=== PATIENT | male | born 1955 | race Caucasian/White ===

== ENCOUNTER 2025-01-27 08:42 | Inpatient (IN) | payer MEDICARE, SELFPAY ==
--- NOTE | ~2025-01-27 | CT_ITS ---
EXAMINATION: CT CERVICAL SPINE WITHOUT CONTRAST CLINICAL INFORMATION: Seizure COMPARISON: None available. TECHNIQUE: US axial images through the cervical spine using 3 mm collimation with bone and soft tissue algorithm. Sagittal and coronal reformatted images acquired. DLP: 356.[address] examination was performed using dose optimization techniques as appropriate, variously including the following: *Automated exposure control *Adjustment of mA and/or kV according to patient size (this includes techniques or standardized protocols for targeted exams where dose is matched to indication/reason for exam; i.e. extremities or head) *Use of iterative reconstruction technique FINDINGS: Degenerative changes in the craniocervical junction periodontal region with a partially calcified pannus formation. Normal alignment between the occipital condyles and the lateral masses of C1 without acute cortical disruption. Marginal osteophyte formation and subchondral cyst formation and decreased intervertebral disc height and endplate sclerosis from C3-4 to C6-7 pronounced at C4-5 C5-6 and C6-7. Grade 1 retrolisthesis C4-5 on a degenerative basis. C1 is intact. C2 is intact. C3 is intact. Facet joint hypertrophy. C4 is intact. C5 is intact. Facet joint hypertrophy. C6 is intact. C7 is intact. No prevertebral compartment hematoma, mass or fluid collection. Paraseptal emphysematous changes, lung apices. Tympanic cavities and mastoid cells are aerated. CT/CT cervical spine wo IV con IMPRESSION: Multilevel cervical spondylosis without acute fracture or trauma-related listhesis. Fleischner guidelines were followed. Electronically signed by: Twin Saavedra MD 01/27/2025 11:03 AM EDT
--- NOTE | ~2025-01-27 | XR_ITS ---
EXAMINATION: XR CHEST CLINICAL INFORMATION: confused, recent weight loss COMPARISON: None available. TECHNIQUE: 2 views of the chest were obtained. FINDINGS: No significant abnormality is noted involving the heart, lungs, mediastinum, or soft tissues. Anterior osteophytes are present in the midthoracic spine. There is also mild disc space narrowing. XR/XR chest 2V IMPRESSION: No acute disease. Mild degenerative disc disease in the midthoracic spine. Electronically signed by: Kris Ordonez MD 01/27/2025 10:35 AM EDT
--- NOTE | ~2025-01-27 | CT_ITS ---
EXAMINATION: CT HEAD WITHOUT CONTRAST CLINICAL INFORMATION: seizure, confusion COMPARISON: None available. TECHNIQUE: Contiguous axial imaging was performed from the skull base to vertex without intravenous administration of contrast. This CT examination was performed using dose optimization techniques as appropriate, variously including the following: *Automated exposure control *Adjustment of mA and/or kV according to patient size (this includes techniques or standardized protocols for targeted exams where dose is matched to indication/reason for exam; i.e. extremities or head) *Use of iterative reconstruction technique DLP: 680 mGy-cm FINDINGS: No acute cortical disruption in the bony calvarium or the skull base. No acute intracranial hemorrhage, mass effect, midline shift, hydrocephalus or herniation. Alfonso-white matter differentiation is normal. Mild bilateral patchy deep periventricular white matter hypodensity. Questionable old lacunar infarct in the right mid grant. Prominence of the extra-axial CSF spaces cerebral sulci and ventricles likely central volume loss. Posterior cranial fossa contents demonstrated no acute intracranial hemorrhage or mass effect. Sellar/suprasellar region demonstrated no gross masses. There is normal position of the cerebellar tonsils. Tympanic cavities and mastoid cells are aerated. No air-fluid levels in the paranasal sinuses. Old traumatic deformity, nasal bones. No gross hematoma in the intraconal or extraconal compartments of the orbits. 1.4 cm crescent-shaped fat density right frontal soft tissue scalp, likely lipoma.. CT/CT head/brain wo IV con IMPRESSION: No acute fracture, bony calvarium. No acute intracranial hemorrhage. Electronically signed by: Twin Saavedra MD 01/27/2025 11:06 AM EDT
--- NOTE | ~2025-01-27 | US_ITS ---
EXAMINATION: US KIDNEY BILATERAL HISTORY: JOSEPH TECHNIQUE: Real-time grayscale ultrasound imaging of the kidneys was performed and images were reviewed. COMPARISON: There are no prior studies available for comparison. FINDINGS: Right kidney: The right kidney measures 9.8 x 5.4 x 4.8 cm. There is suboptimal visualization of the upper and lower poles. There is increased renal cortical echotexture, consistent with chronic medical renal disease. There are multiple cysts, the largest of which measures 1.7 x 0.8 x 1.1 cm. There is no hydronephrosis or renal calculi. Left Kidney: The left kidney measures 8.9 x 4.9 x 3.1 cm. There is suboptimal visualization of the lower pole. There is increased renal cortical echotexture, consistent with chronic medical renal disease. There are multiple renal cysts, the largest of which measures 7 x 6 x 8 mm. There is no hydronephrosis or renal calculi. US/US renal BI IMPRESSION: Increased renal cortical echotexture, consistent with chronic medical renal disease. Multiple bilateral renal cysts as described. Electronically signed by: Brando Tejada MD 02/12/2025 07:03 AM EDT
[2025-01-27 08:57] VITALS: BP 136/94; PULSE 97; RESP 16; TEMP 36.6; O2SAT 99; BMI 22.9
--- NOTE | 2025-01-27 09:04 | ECG_ITS ---
Test Reason : MED CLEARANCE Blood Pressure : */* mmHG Vent. Rate : 89 BPM Atrial Rate : 89 BPM P-R Int : 140 ms QRS Dur : 94 ms QT Int : 368 ms P-R-T Axes : 42 -64 49 degrees QTcB Int : 447 ms Normal sinus rhythm Incomplete right bundle branch block Left anterior fascicular block Cannot rule out Anterior infarct , age undetermined Abnormal ECG No previous ECGs available Referred By: Generic ED Physician Electronically Signed By: Sammy Rashid
[2025-01-27 09:21] LABS: MANUAL DIFF FLAG NO
[2025-01-27 09:33] LABS: Hematocrit 43.8 % (42.0-52.0); Hemoglobin 14.5 g/dl (14.0-18.0); Imm Gran Abs Auto 0.07 X10*3/uL (0.00-0.03); Imm Gran Pct Auto 1.1 % (0.0-0.4); Lymphocytes Absolute Auto 1.5 X10*3/uL (1.2-4.9); Mean Corpuscular HGB Conc 33.1 g/dl (31.0-36.0); Mean Corpuscular Hemoglobin 31.7 pg (27.0-33.0); Mean Corpuscular Volume 95.6 fL (80.0-98.0); NRBC Abs Auto 0.000 X10*3/uL (0.0-0.012); NRBC Pct Auto 0.0 /100WBC (0.0-0.2); Platelet Count 139 X10*3/uL (160-400); Red Blood Count 4.58 X10*6/uL (4.60-5.80); White Blood Count 6.6 X10*3/uL (4.8-10.8)
--- NOTE | 2025-01-27 09:36 | ED_ITS ---
HPI - General Adult General Chief complaint: General Medical Stated complaint: crisis eval Time Seen by Provider: 01/27/25 09:07 Source: patient and family (son) Mode of arrival: ambulatory Limitations: no limitations History of Present Illness ED Provider: CORINE LEE PA-C HPI narrative: 69 year old male with pmhx significant for HTN, seizures, and stage 4 CKD (not on dialysis) presents to the ED today with his son for evaluation. He reports seizure 1-2 days ago while home alone. Patient states he recalls the entire episode. Reports falling to the ground and began convulsing. This lasted anywhere from 1-5 minutes. Denies any preceding symptoms of headache, dizziness, chest pain, palpitations, shortness of breath. He was eventually able to get off of the ground himself and ambulate. He denies any head strike. Denies tongue bite. Denies bowel or bladder incontinence. He is not on anticoagulation. He reports feeling confused since this time. He admits he does not typically remember his seizures. He is currently on Depakote and reports compliance however admits to missing a few doses here and there. He reports taking his Depakote this morning. Reports increasing depression. He currently follows with a therapist approximately 2 times a year. Reports recently meeting with them however did not inform them of how he was feeling. Reports contacting his son today who brought him to the ED for further evaluation. Admits to smoking approximately 1 pack of cigarettes a day. Admits to drinking approximately 1 glass of wine and 1 large 20 oz beer daily over the last month. Denies any history of ETOH withdrawal or known withdrawal seizures. He last consumed alcohol last night. Denies any illicit substance use. Denies SI/HI. Admits to unintentional 20 lb weight loss over the last 4-6 weeks. Reports episode of vomiting a few day ago which has since resolved. Admits to increased water intake and decreased food intake. Related Data Home Medications ?Medication ?Instructions ?Recorded ?Confirmed cholecalciferol (vitamin D3) 25 25 mcg PO DAILY 01/28/25 mcg (1,000 unit) tablet (Vitamin D3) divalproex 500 mg tablet,delayed 1,000 mg PO BEDTIME 0 01/28/25 01/28/25 release divalproex 500 mg tablet,delayed 500 mg PO DAILY 01/2801/28/25 release vitamin B complex 1 tab PO DAILY 01/28/2501/07 Allergies Allergy/AdvReac Type Severity Reaction Status Date / Time No Known Allergies Allergy Mild NONE Verified 01/27/25 09:01 Review of Systems 2 Review of Systems: Yes all other systems are reviewed and are negative [facility] Past Medical History Attestation statement: The following information was validated with the patient. Source: old records reviewed, obtained from family (son) and nursing notes reviewed Medical History (Updated 01/30/25 @ 18:06 by Ludivina Longoria APRN) Alcohol use disorder Social History Social History Household Members: None Household Members Other:: lives alone Housing: Other Housing Other:: Trailer Do you presently have visiting nurse or other home services: No Comment: Patient has had a seizure Patient Tobacco Use Status: Current everyday Tobacco user Tobacco use type: Cigarette Cigarette Packs Per Day: 1 Cigarettes Per Day: 20.0 Years Smoked: 50 Smoked in Last 30 Days: Yes e-Cigarette/Vaping Use: Never Used Patient Interested in Nicotine Replacement: Yes Patient Given Instructions on How to Stop Smoking: No Second Hand Smoke Exposure: No Use of substances other than those prescribed or required for medical reasons: Yes Substance Use Type: Marijuana Currently Displaying Signs/Symptoms of Drug Intoxication Withdrawal: No Have you been hit, kicked, punched, or otherwise hurt by someone within the past year? If so, by whom?: No Do you feel safe in your current relationship?: No Current Relationship Is there a partner from a previous relationship who is making you feel unsafe now?: No Are you made to feel afraid or neglected: No Advance Directives: No Advance Directives Information Provided: Yes Do you have thoughts of harming others: None Do you have a plan to hurt others: No Plan Recently lost weight without trying: Yes How much weight loss: 14-23 pounds Eating poorly because of decreased appetite: Yes Nutrition screen score: 5 Nutrition Risks: Poor intake 0-25% >4 days Poor oral hygiene: Yes (Dentures) service: No Sexual orientation: Straight/Heterosexual Physical Exam ED Vital Signs: Vital Signs - 24 hr 01/28/25 18:19 01/29/25 06:29 Temperature 97.5 F 98.4 F Pulse Rate 64 79 Respiratory Rate 16 17 Blood Pressure 135/85 123/81 Pulse Oximetry 99 98 Oxygen Delivery Method Room Air Room Air BMI result Body Mass Index 22.9 Hypertensive, vitals otherwise WNL General: Well appearing, in no acute distress. Skin: Warm, dry, intact. No rashes or lesions. Head: Normocephalic, atraumatic. EENT: Hearing is intact b/l. Conjunctiva clear. Sclera is anicteric. PERRLA. EOM intact. Moist mucous membranes.? Neck: Supple without LAD Cardiac: Chest wall symmetric. RRR Lungs: Normal respiratory effort without accessory muscle use. Diminished breath sounds throughout, no adventitious breath sounds. Abdomen: Soft, non-tender, non-distended. No rebound tenderness or guarding. Positive BS x4. Back: No midline spinous or paraspinal tenderness. No step off deformity. Ext: Upper and lower extremities atraumatic, without tenderness, deformity, swelling or erythema. Full ROM throughout. Neuro: AOx3. Normal speech. Strength 5/5 intact throughout. No saddle anesthesia. Sensation intact to light touch. NV intact distally. Ambulating with steady gait. Psych: Appropriate mood and affect. Responds appropriately to questions. Course Course Course Narrative: 1216 -- CBC without leukocytosis or left shift. No anemia. H&H stable. Chemistry without acute electrolyte abnormality requiring intervention. Kidney function appears mildly elevated when compared to baseline CKD, BUN of 39 and creatinine of 2.59. Treated with IV fluids. Liver function WNL. TSH WNL. Troponin WNL. Total CK WNL. No concern for rhabdo. EKG showing normal sinus rhythm, rate of 89 beats per minute with incomplete right bundle-branch block and left anterior fascicular block. No acute ischemic changes. No priors EKGs to compare to. Urine without infection. Urine toxicology undetectable. Ethanol undetectable. Valproic acid mildly above therapeutic range to 105.8. Chest x-ray without evidence of pneumonia. Head CT without bleed or mass. CT cervical spine without fracture or subluxation. CIWA 1 - at this time, there is no concern for ETOH withdrawal. I do have suspicion that patient likely seized 2 days ago secondary to consuming alcohol. Unclear compliance with medication although valproic acid levels are technically within therapeutic range. > at this time patient is medically cleared. Care team has met with patient, he states that he would like inpatient level of care which I feel is reasonable. He is currently a bed search. Reevaluation(s) Reevaluation #1: Time: 08:51 Date: 01/28/25 Provider: Feliz Almaguer MD Patient in physician observation for psychiatric evaluation.? No acute events reported overnight. No current complaints. VS stable.? Patient is in bed search status/pending CARE team evaluation. Will continue to monitor. Reevaluation #2: I, Dr. Yanes have take over the care of this patient, I reviewed pertinent blood work and imaging, re-evaluated the patient when appropriate. Time: 08:13 Medications Administered Generic Name Dose Route Start Last Admin Trade Name Freq PRN Reason Stop Dose Admin Divalproex Sodium 500 mg 01/29/25 09:00 01/31/25 09:07 Divalproex Sodium 500 Mg Tablet. PO 500 mg DAILY JOAO Administration Divalproex Sodium 1,000 mg 01/28/25 21:00 01/30/25 21:32 Divalproex Sodium 500 Mg Tablet. PO 1,000 mg BEDTIME JOAO Administration Folic Acid 1 mg 01/31/25 09:00 01/31/25 09:06 Folic Acid 1 Mg Tablet PO 1 mg DAILY JOAO Administration Hydroxyzine HCl 25 mg 01/29/25 16:34 01/30/25 06:32 Hydroxyzine Hcl 25 Mg Tablet PO 25 mg Q6H PRN Administration mild anxiety Lorazepam 1 mg 01/30/25 11:28 01/30/25 11:48 Lorazepam 1 Mg Tablet PO 1 mg Q2H PRN Administration ciwa 6-10 Mirtazapine 7.5 mg 01/30/25 21:00 01/30/25 21:32 Mirtazapine 7.5 Mg Tablet PO 7.5 mg BEDTIME JOAO Administration Multivitamins/Vitamin C 1 tab 01/29/25 09:00 01/31/25 09:06 Multivitamin Tablet PO 1 tab DAILY JOAO Administration Thiamine HCl 100 mg 01/31/25 09:00 01/31/25 09:06 Thiamine Hcl 100 Mg Tablet PO 100 mg DAILY JOAO Administration Vitamin D 25 mcg 01/29/25 09:00 01/31/25 09:06 Cholecalciferol (Vitamin D3) 25 Mcg Tablet PO 25 mcg DAILY JOAO Administration Discontinued Medications Generic Name Dose Route Start Last Admin Trade Name Elliot PRN Reason Stop Dose Admin Diphenhydramine HCl 50 mg 01/28/25 23:12 01/28/25 23:23 Diphenhydramine Hcl 25 Mg Capsule PO 01/28/25 23:13 50 mg ONCE ONE Administration Divalproex Sodium 1,000 mg 01/28/25 01:32 01/28/25 01:36 Divalproex Sodium 500 Mg Tablet. PO 01/28/25 01:33 1,000 mg ONCE ONE Administration Divalproex Sodium 500 mg 01/28/25 08:36 01/28/25 08:39 Divalproex Sodium 500 Mg Tablet. PO 01/28/25 08:37 500 mg ONCE ONE Administration Sodium Chloride 1,000 mls @ 999 mls/hr 01/27/25 10:15 01/27/25 11:52 Ns IV 01/27/25 11:15 Infused .Q1H1M JOAO Infusion Melatonin 6 mg 01/28/25 20:53 01/28/25 21:03 Melatonin 3 Mg Tablet PO 01/28/25 20:54 6 mg ONCE ONE Administration Medical Decision Making Medical Decision Making [facility] Narrative: 69 year old male with pmhx significant for HTN, seizures, and stage 4 CKD (not on dialysis) presents to the ED today with his son for evaluation. Patient hypertensive, vitals are otherwise WNL. He is generally well-appearing in no acute distress. Flat affect. Lungs with diminished breath sounds throughout. No rales, rhonchi or wheezes. No pitting edema. A/O x4. Exam nonfocal. Differential diagnosis includes anemia, electrolyte abnormality, viral syndrome, dehydration, failure to thrive, depression, seizure disorder, medication noncompliance, ETOH intoxication, ETOH withdrawal, ETOH abuse, urinary tract infection, pneumonia, intracranial bleed. Plan for labs, EKG, viral swabs, urinalysis, urine drug screen, CT head/C-spine, chest x-ray, care team evaluation. Differential Diagnosis Differential Diagnoses: The differential diagnosis associated with the presentation includes as above. Admission/Observation Consideration of admission/observation: Escalation of care including admission/observation considered Lab Data [facility] Lab Attestation statement: I reviewed the patient's lab results. as above. 01/27/25 09:16 01/30/25 07:56 Labs: Lab Results 01/27/25 01/27/25 Range/Units 09:16 11:58 WBC 6.6 (4.8-10.8) X10*3/uL RBC 4.58 L (4.60-5.80) X10*6/uL Hgb 14.5 (14.0-18.0) g/dl Hct 43.8 (42.0-52.0) % MCV 95.6 (80.0-98.0) fL MCH 31.7 (27.0-33.0) pg MCHC 33.1 (31.0-36.0) g/dl RDW 14.2 (11.0-16.0) % Plt Count 139 L (160-400) X10*3/uL MPV 10.9 (9.4-12.4) fL Immature Gran % (Auto) 1.1 H (0.0-0.4) % Neut % (Auto) 62.7 (45-73) % Lymph % (Auto) 22.7 (20-40) % Garrett % (Auto) 10.0 (2-11) % Eos % (Auto) 2.9 (0-4) % Baso % (Auto) 0.6 (0-2) % Lymph # (Auto) 1.5 (1.2-4.9) X10*3/uL Garrett # (Auto) 0.7 (0.1-1.2) X10*3/uL Eos # (Auto) 0.2 (0.0-0.4) X10*3/uL Baso # (Auto) 0.0 (0.0-0.2) X10*3/uL Abs Immat Gran (auto) 0.07 H (0.00-0.03) X10*3/uL Absolute Neuts (auto) 4.2 (2.0-8.3) x10*3/uL Absolute Nucleated RBC 0.000 (0.0-0.012) X10*3/uL Nucleated RBC % (auto) 0.0 (0.0-0.2) /100WBC Sodium 144 (135-145) mmol/L Potassium 4.9 (3.3-5.1) mmol/L Chloride 111 H (96-108) mmol/L Carbon Dioxide 26 (22-29) mmol/L Anion Gap 12 (12-20) BUN 39 H (9-16) mg/dL Creatinine 2.59 H (0.5-1.4) mg/dL Estim Creat Clear Calc 28.7 Estimated GFR 25 Random Glucose 87 (60-115) mg/dL Calcium 9.2 (8.4-10.2) mg/dL Total Bilirubin 0.2 (0.0-1.0) mg/dL AST 18 (5-37) U/L ALT 12 (0-40) U/L Alkaline Phosphatase 65 (39-117) U/L Total Creatine Kinase 84 (38-174) U/L Troponin I High Sens 8.3 (<3.5-35.0) ng/L Total Protein 7.2 (6.5-8.0) g/dL Albumin 4.2 (3.5-5.0) g/dL TSH 0.67 (0.32-4.0) uIU/mL Urine Color Yellow Urine Appearance Clear Urine pH 6.0 (5.0-9.0) Ur Specific [place] <= 1.005 (1.005-1.025) Urine Protein Negative (Neg-Trace) mg/dL Urine Glucose (UA) Negative (Negative) mg/dL Urine Ketones Negative (Negative) mg/dL Urine Blood Negative (Negative) Urine Nitrite Negative (Negative) Ur Leukocyte Esterase Negative (Negative) Urine Opiates Screen Not Detected (Not Detect) Ur Buprenorphine Scrn Not Detected (Not Detect) ng/mL Ur Oxycodone Screen Not Detected (Not Detect) ng/mL Urine Methadone Screen Not Detected (Not Detect) ng/mL Urine Fentanyl Screen Not Detected (Not Detect) Ur Barbiturates Screen Not Detected (Not Detect) Valproic Acid 105.8 H (50.0-100.0) mcg/mL Ur Phencyclidine Scrn Not Detected (Not Detect) Ur Amphetamines Screen Not Detected (Not Detect) U Benzodiazepines Scrn Not Detected (Not Detect) Urine Cocaine Screen Not Detected (Not Detect) U Marijuana (THC) Screen Not Detected (Not Detect) Ethyl Alcohol < 10 mg/dL Influenza Type A (PCR) NEGATIVE (Negative) Influenza Type B (PCR) NEGATIVE (Negative) RSV RNA Qual (PCR) NEGATIVE (Negative) SARS-CoV-2 RNA (RT-PCR) NEGATIVE (Negative) Independent Interpretation I performed an independent interpretation of an: EKG, Plain X-Ray and CT Scan Interpretation: EKG showing normal sinus rhythm, incomplete RBBB, rate of 89 beats per minute, QT 368, QTC 447, acute ischemic changes or ST elevations. no priors to compare to CXR without infiltrate or consolidation CT cervical spine without fracture CT head without bleed Radiology Impression Discussion of test interpretation with radiology: I have reviewed the radiologist's reading. Radiologist Impression: Date of Service: 01/27/25 Procedure(s): XR chest 2V Accession Number(s): [id number] cc: Tomas Arce MD; Alessandra Lee~ EXAMINATION: XR CHEST CLINICAL INFORMATION: confused, recent weight loss COMPARISON: None available. TECHNIQUE: 2 views of the chest were obtained. FINDINGS: No significant abnormality is noted involving the heart, lungs, mediastinum, or soft tissues. Anterior osteophytes are present in the midthoracic spine. There is also mild disc space narrowing. XR/XR chest 2V IMPRESSION: No acute disease. Mild degenerative disc disease in the midthoracic spine. Electronically signed by: Kris Ordonez MD 01/27/2025 10:35 AM EDT RP Date of Service: 01/27/25 Procedure(s): CT head/brain wo IV con Accession Number(s): [id number] cc: Tomas Arce MD; Alessandra Lee~ Report Number: [id number]: Total DLP = 680.00 mGy-cm EXAMINATION: CT HEAD WITHOUT CONTRAST CLINICAL INFORMATION: seizure, confusion COMPARISON: None available. TECHNIQUE: Contiguous axial imaging was performed from the skull base to vertex without intravenous administration of contrast. This CT examination was performed using dose optimization techniques as appropriate, variously including the following: *Automated exposure control *Adjustment of mA and/or kV according to patient size (this includes techniques or standardized protocols for targeted exams where dose is matched to indication/reason for exam; i.e. extremities or head) *Use of iterative reconstruction technique DLP: 680 mGy-cm FINDINGS: No acute cortical disruption in the bony calvarium or the skull base. No acute intracranial hemorrhage, mass effect, midline shift, hydrocephalus or herniation. Alfonso-white matter differentiation is normal. Mild bilateral patchy deep periventricular white matter hypodensity. Questionable old lacunar infarct in the right mid grant. Prominence of the extra-axial CSF spaces cerebral sulci and ventricles likely central volume loss. Posterior cranial fossa contents demonstrated no acute intracranial hemorrhage or mass effect. Sellar/suprasellar region demonstrated no gross masses. There is normal position of the cerebellar tonsils. Tympanic cavities and mastoid cells are aerated. No air-fluid levels in the paranasal sinuses. Old traumatic deformity, nasal bones. No gross hematoma in the intraconal or extraconal compartments of the orbits. 1.4 cm crescent-shaped fat density right frontal soft tissue scalp, likely lipoma.. CT/CT head/brain wo IV con IMPRESSION: No acute fracture, bony calvarium. No acute intracranial hemorrhage. Electronically signed by: Twin Saavedra MD 01/27/2025 11:06 AM EDT RP Date of Service: 01/27/25 Procedure(s): CT cervical spine wo IV con Accession Number(s): [id number] cc: Tomas Arce MD; Alessandra Lee~ Report Number: [id number]: Total DLP = 356.00 mGy-cm EXAMINATION: CT CERVICAL SPINE WITHOUT CONTRAST CLINICAL INFORMATION: Seizure COMPARISON: None available. TECHNIQUE: US axial images through the cervical spine using 3 mm collimation with bone and soft tissue algorithm. Sagittal and coronal reformatted images acquired. DLP: 356.[address] examination was performed using dose optimization techniques as appropriate, variously including the following: *Automated exposure control *Adjustment of mA and/or kV according to patient size (this includes techniques or standardized protocols for targeted exams where dose is matched to indication/reason for exam; i.e. extremities or head) *Use of iterative reconstruction technique FINDINGS: Degenerative changes in the craniocervical junction periodontal region with a partially calcified pannus formation. Normal alignment between the occipital condyles and the lateral masses of C1 without acute cortical disruption. Marginal osteophyte formation and subchondral cyst formation and decreased intervertebral disc height and endplate sclerosis from C3-4 to C6-7 pronounced at C4-5 C5-6 and C6-7. Grade 1 retrolisthesis C4-5 on a degenerative basis. C1 is intact. C2 is intact. C3 is intact. Facet joint hypertrophy. C4 is intact. C5 is intact. Facet joint hypertrophy. C6 is intact. C7 is intact. No prevertebral compartment hematoma, mass or fluid collection. Paraseptal emphysematous changes, lung apices. Tympanic cavities and mastoid cells are aerated. CT/CT cervical spine wo IV con IMPRESSION: Multilevel cervical spondylosis without acute fracture or trauma-related listhesis. Fleischner guidelines were followed. Electronically signed by: Twin Saavedra MD 01/27/2025 11:03 AM EDT Independent Historian Clinical information obtained from an independent historian. History obtained from or confirmed by: Other (son) Social Determinants Patient?s care significantly limited by Social Determinants of Health including: Other Social Determinant of Health Discharge Plan Discharge Clinical Impression: Depression, Seizure disorder, Adult failure to thrive Patient Disposition: Admitted As Inpatient Interventions: Admission Worksheet (ED) Last Done: 01/29/25 18:17 Discharge Date/Time: 01/29/25 18:44
[2025-01-27 09:38] LABS: Alanine Aminotransferase 12 U/L (0-40); Albumin Level 4.2 g/dL (3.5-5.0); Alkaline Phosphatase 65 U/L (39-117); Anion Gap 12 (12-20); Aspartate Amino Transferase 18 U/L (5-37); Blood Urea Nitrogen 39 mg/dL (9-16); Calcium 9.2 mg/dL (8.4-10.2); Carbon Dioxide 26 mmol/L (22-29); Chloride 111 mmol/L (96-108); Creatinine Clr Calc Pharmacy 28.7; Estimated Glomerular Filt Rate 25; Potassium 4.9 mmol/L (3.3-5.1); Sodium 144 mmol/L (135-145); Total Protein 7.2 g/dL (6.5-8.0)
--- OUTSIDE RECORDS SUMMARY | 2025-01-27 10:54 | XMS_ITS | Clinical Summary ---
Author Organization [facility] Address [address] [place] [address] Phone Care Team Providers Care Anger Control Counselor Name Role Phone Tomas Arce MD Primary Care Provider [phone] Allergies No known active allergies Medications bacitracin (bacitracin zinc) 500 unit/gram ointment Apply 1 Application topically 2 (two) times a day for 10 days. 120 g 01/04/20 25 Encounters Date Type Department Care Team Description 12/24/2024 7:14 AM EDT - 12/24/2024 11:10 AM EDT Emergency [facility] Emergency [address] [place] [address] Milton Gonzalez MD Laceration of right little finger, foreign body presence unspecified, nail damage status unspecified, initial encounter (Primary Dx) Discharge Disposition: Home or Self Care from Last 3 Months Immunizations Name Administration Dates Next Due Tdap Tetanus diptheria acell ular pertussis (Boostrix; Adacel) 7yo and older 12/24/2024 Social History Tobacco Use Types Packs/Day Years Used Date Smoking Tobacco: Never Assessed Sex and Gender Information Value Date Recorded Sex Assigned at Not on file Legal Sex Male 10:24 PM EST Gender Identity Not on file Sexual Orientation Not on file Last Filed Vital Signs Vital Sign Reading Time Taken Comments Blood Pressure 126/100 12/24/2024 6:47 AM EDT Pulse 102 12/24/2024 6:47 AM EDT Temperature 36.9 C (98.4 F) 12/24/2024 6:47 AM EDT Respiratory Rate 18 12/24/2024 6:47 AM EDT Oxygen Saturation 97% 12/24/2024 6:47 AM EDT Inhaled Oxygen Concentration - - Weight - - Height - - Body Mass Index - - Plan of Treatment Health Maintenance Due Date Last Done Comments Pneumococcal Vaccine: 50+ Years (1 of 1 - PCV) 2006 Zoster Vaccines (1 of 2) 2006 Abdominal Aortic Aneurysm (AAA) Screen 01/29/2024 Cholesterol Screening (Lipid Panel) 01/29/2024 Colorectal Cancer Screening: Colonoscopy 01/29/2024 Falls Risk Assessment 01/29/2024 Hepatitis C Screening 01/29/2024 Medicare Annual Wellness Visit 01/29/2024 Social Influencers of Health Screening 01/29/2024 COVID-19 Vaccine ( season) 2024 02/13/2024, 04/23/2023, 04/21/2022, Additional history exists Depression Screening 07/09/2024 Influenza Vaccine (#1) 2025 , 04/23/2023, 05/03/2022, Additional history exists RSV Immunization Adult Patients (1 - 1-dose 75+ series) 12/05/2031 DTaP,Tdap,and Td Vaccines (2 - Td or Tdap) 12/24/2034 12/24/2024 HIB Vaccines Aged Out No longer eligi ble based on patient's age to complete this topic HPV Vaccines Aged Out No longer eligi ble based on patient's age to complete this topic Hepatitis A Vaccines Aged Out No long er eligible based on patient's age to complete this topic Hepatitis B Vaccines Aged Out No long er eligible based on patient's age to complete this topic IPV Vaccines Aged Out No longer eligi ble based on patient's age to complete this topic MMR Vaccines Aged Out No longer eligi ble based on patient's age to complete this topic Meningococcal ACWY Vaccine Aged Out N o longer eligible based on patient's age to complete this topic Meningococcal B Vaccine Aged Out No l onger eligible based on patient's age to complete this topic RSV Immunization Patients Under 20 months Aged Out No longer eligible based on patient's age to complete this topic Varicella Vaccines Aged Out No longer eligible based on patient's age to complete this topic Procedures Procedure Name Priority Date/Time Associated Diagnosis Comments ED LACERATION REPAIR Routine 12/24/2024 9:42 AM EDT MI REPAIR INTERMEDIATE WOUNDS NECK/HANDS/FEET/EXT GENITALIA <= 2.5 CM Routine 12/24/2024 9:42 AM EDT XR FINGERS 2+ VIEWS RIGHT STAT 12/24/2024 9:37 AM EDT XR FINGERS 2+ VIEWS RIGHT STAT 12/24/2024 6:58 AM EDT from Last 3 Months Results * MI REPAIR INTERMEDIATE WOUNDS NECK/HANDS/FEET/EXT GENITALIA <= 2.5 CM, HC REPAIR WOUND LEVEL 1 (12/24/2024 9:42 AM EDT) Milton Pichardo MD - 12/24/2024 9:42 AM EDT Milton Gonzalez MD 12/31/2024 7:19 PM Laceration Repair Date/Time: 12/24/2024 9:42 AM Performed by: Milton Gonzalez MD Authorized by: Milton Gonzalez MD Consent: Consent obtained: Verbal Consent given by: Patient Risks discussed: Retained foreign body, pain and need for additional repair Alternatives discussed: No treatment Aspen protocol: Patient identity confirmed: Verbally with patient Anesthesia: Anesthesia method: Local infiltration Local anesthetic: Lidocaine 1% w/o epi Laceration details: Location: Finger Finger location: R small finger Length (cm): 1.5 Depth (mm): 7 Exploration: Imaging obtained: x-ray Imaging outcome: foreign body noted Wound exploration: wound explored through full range of motion Treatment: Area cleansed with: Povidone-iodine Amount of cleaning: Standard Irrigation solution: Sterile saline Irrigation method: Pressure wash Debridement: None Undermining: None Skin repair: Repair method: Sutures Suture size: 5-0 Suture material: Nylon Suture technique: Simple interrupted Number of sutures: 6 Approximation: Approximation: Loose Repair type: Repair type: Intermediate Post-procedure details: Dressing: Antibiotic ointment Procedure completion: Tolerated well, no immediate complications Comments: Bleeding was well-controlled. Finger splint applied. Dressing applied. Wound precautions discussed. us Milton Gonzalez MD IN CLINIC/BEDSIDE ORDERABLES Fi nal Result * XR Fingers 2+ Views Right (12/24/2024 9:37 AM EDT) Only the most recent of2 resultswithin the time period is included. Anatomical Region Laterality Modality Upper Extremities, Fingers Right Radio graphic Imaging 12/24/2024 10:3 2 AM EDT Impressions 12/24/2024 10:33 AM EDT FINDINGS/IMPRESSION: No acute fracture or dislocation. Soft tissue swelling around the 5th distal interphalangeal joint. Punctate radiodensity within the volar and radial soft tissues at the level of the distal interphalangeal joint is unchanged and may reflect a small foreign body. -------- FINAL REPORT -------- Dictated By: MALDONADO ANDREA Dictated Date: 12/24/2024 10:32 ET Assigned Physician: MALDONADO ANDREA Reviewed and Electronically Signed By: MALDONADO ANDREA Signed Date: 12/24/2024 10:33 ET Workstation ID: [id number] Transcribed By: Self Edit Transcribed Date: 12/24/2024 10:32 ET Narrative 12/24/2024 10:33 AM EDT XR FINGERS 2+ VIEWS RIGHT INDICATION: Pain TECHNIQUE: XR FINGERS 2+ VIEWS RIGHT COMPARISON: 12/24/2024 Procedure Note Maldonado Andrea MD - 12/24/2024 XR FINGERS 2+ VIEWS RIGHT INDICATION: Pain TECHNIQUE: XR FINGERS 2+ VIEWS RIGHT COMPARISON: 12/24/2024 IMPRESSION: FINDINGS/IMPRESSION: No acute fracture or dislocation. Soft tissueswelling around the 5th distal interphalangeal joint. Punctateradiodensity within the volar and radial soft tissues at the level of thedistal interphalangeal joint is unchanged and may reflect a small foreignbody. -------- FINAL REPORT -------- Dictated By: MALDONADO ANDREA Dictated Date: 12/24/2024 10:32 ET Assigned Physician: MALDONADO ANDREA Reviewed and Electronically Signed By: MALDONADO ANDREA Signed Date: 12/24/2024 10:33 ET Workstation ID: [id number] Transcribed By: Self Edit Transcribed Date: 12/24/2024 10:32 ET us Milton B Carlos CARBONE IMG XR PROCEDURES Final Result from Last 3 Months Insurance [address] [place] [address] MEDICARE [facility] Care Teams Anger Control Counselor Relationship Specialty Start Date End Date Tomas Arce MD [address] [place] [address] PCP - General Internal Medicine 12/24/24
--- OUTSIDE RECORDS SUMMARY | 2025-01-27 10:54 | XMS_ITS | Clinical Summary ---
Author Organization [facility] Address [address] [place] [address] Care Team Providers Care Pesticide Control Inspector Name Role Phone Unavailable Primary Care Provider Unavailabl e Social History Tobacco Use Types Packs/Day Years Used Date Smoking Tobacco: Never Assessed Sex and Gender Information Value Date Recorded Sex Assigned at Not on file Legal Sex Male 2:45 PM EDT Gender Identity Not on file Sexual Orientation Not on file Plan of Treatment Health Maintenance Due Date Last Done Comments Hepatitis C Virus Screening 1955 DTaP/Tdap/Td Vaccines (1 - Tdap) 12/05/1975 Pneumococcal Vaccines 50+ (1 of 1 - PCV) 2006 Zoster (Shingles) Vaccine (1 of 2) 2006 COVID-19 Vaccine ( - 2023-2 5 season) 2024 RSV Vaccine 60 years and old er and Patients (1 - 1-dose 75+ series) 12/05/2031 Hepatitis B Vaccines Aged Out No long er eligible based on patient's age to complete this topic
--- OUTSIDE RECORDS SUMMARY | 2025-01-27 10:54 | XMS_ITS | Clinical Summary ---
Author Organization 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 Bipolar I disorder 12/16/2020 Chronic kidney disease, stage 4 (severe) 021 Switzer adverse reaction <Sequela> 12/16/2020 Family History Medical History Relation Comments Cancer Father Hypertension Father Relation Status Comments Father Mother Alive Social History Tobacco Use Types Packs/Day Years Used Date Smoking Tobacco: Every Day Cigarettes Smokeless Tobacco: Never Alcohol Use Standard Drinks/Week Comments Yes 0 (1 standard drink = 0.6 oz pure alcohol) Alcoholic Drinks/day: Occasional social drink Sex and Gender Information Value Date Recorded Sex Assigned at Not on file Legal Sex Male 5:23 PM EST Gender Identity Not on file Sexual Orientation Not on file Last Filed Vital Signs Vital Sign Reading Time Taken Comments Blood Pressure 110/76 09/09/2024 9:55 AM EST Pulse 54 09/09/2024 9:55 AM EST Temperature - - Respiratory Rate - - Oxygen Saturation 96% 09/09/2024 9:55 AM EST Inhaled Oxygen Concentration - - Weight 85 kg (187 lb 6.4 oz) 09/09/2024 9:55 AM EST Height 182.9 cm (6') 09/09/2024 9:55 AM EST Body Mass Index 25.42 09/09/2024 9:55 AM EST Plan of Treatment Upcoming Encounters Date Type Department Care Team (Late st Contact Info) Description 02/03/2025 9:40 AM EDT Office Visit [facility] [address] [phone] Jorge Simmons MD [address] [facility] [address] [place] [address] Health Maintenance Due Date Last Done Comments Pneumococcal Vaccine: 50+ Ye ars (1 of 2 - PCV) 12/05/1975 Colorectal Cancer Screening: Annual FOBT 2005 Colorectal Cancer Screening: Colonoscopy 2005 Colorectal Cancer Screening: Sigmoidoscopy 2005 Influenza Vaccine (#1) 2025 Hepatitis B Vaccine Aged Out No longe r eligible based on patient's age to complete this topic Insurance Medicare Medicare Care Teams Agronomy Instructor Relationship Specialty Start Date End Date Tomas Arce MD [address] [place] [address] PCP - General Internal Medicine 12/21/20
[2025-01-27 10:58] LABS: Troponin-I High Sensitivity 8.3 ng/L (<3.5-35.0)
--- NOTE | 2025-01-27 11:24 | PC.NURSE ---
Care Team at bedside for eval.
[2025-01-27 12:06] LABS: Appearance Urine Clear; Glucose Urine UA Negative (Negative); PH 6.0 (5.0-9.0); Specific Gravity - Urine <= 1.005 (1.005-1.025)
[2025-01-27 12:14] LABS: Cannabinoid Screen Urine Not Detected (Not Detect)
[2025-01-27 12:17] VITALS: BP 120/89; PULSE 73; RESP 13; TEMP 36.2; O2SAT 100
[2025-01-27 12:44] LABS: Resp Syncy Virus RNA Qual PCR NEGATIVE (Negative); SARS COV2 PCR INHOUSE NEGATIVE (Negative)
[2025-01-27 16:06] VITALS: BP 122/79; PULSE 70; RESP 16; O2SAT 97
--- NOTE | 2025-01-27 19:47 | PC.NURSE ---
assumed care for pt at this time. pt calm and cooperative. pt stating feeling a little anxious because of IV, educated pt on purpose of IV pt still requesting IV removed. Removed pts IV, applied ry clean dressing to site, bleeding controlled. pt resting in bed quietly watching tv. call reid within reach. plan of care ongoing
[2025-01-27 20:30] VITALS: BP 127/84; PULSE 82; RESP 16; TEMP 36.7; O2SAT 99
[2025-01-28 01:13] VITALS: BP 139/88; PULSE 69; RESP 16; TEMP 36.2; O2SAT 99
[2025-01-28 07:01] VITALS: BP 116/86; PULSE 77; RESP 14; TEMP 36.7; O2SAT 99
--- NOTE | 2025-01-28 16:12 | PC.NURSE ---
Patient up ambualting around pod with steady gait, calm and cooperative, sitting in common area watching TV, sitter in place for safety
--- NOTE | 2025-01-28 16:15 | PHA.MEDREC ---
Addendum entered by Lian Christina RPh 01/28/25 16:33: MED REC REVIEWED BY [facility] Original Note: Pharmacy Consult ? Medication Reconciliation Pharmacy has completed the medication reconciliation. Spoke with pt to confirm his medications. Pt confirmed his Divalproex 500mg tab 1 tab (500mg) in the morning and 2 tabs (1000mg) at bedtime. Pt also confirmed he is occasionally taking a Vitamin D3 25mcg tablet and a Vitamin B complex tablet once daily and states he last took those a few days ago .
--- NOTE | 2025-01-28 16:26 | MHC.EDTECH ---
Patient arrives to pod wearing his socks shoes, shorts and shirt, with tool repairer bench leads on body attached to stickers. Patient was changed over in 2 with Forrest (security), Luis Daniel CABALLERO, Patsy CABALLERO. Shoes, socks, shorts, shirt locked in locker 2. All other belongings itemized outside Pod.
[2025-01-28 18:19] VITALS: BP 135/85; PULSE 64; RESP 16; TEMP 36.4; O2SAT 99
--- NOTE | 2025-01-28 18:21 | MHC.EDTECH ---
Dinner tray given
--- NOTE | 2025-01-28 23:30 | PC.NURSE ---
Assumed care of this Pt at 2315.
[2025-01-29 06:29] VITALS: BP 123/81; PULSE 79; RESP 17; TEMP 36.9; O2SAT 98
[2025-01-29 10:00] VITALS: BP 119/68; PULSE 86; RESP 18; TEMP 37.1; O2SAT 98
[2025-01-29 14:40] VITALS: BP 119/81; PULSE 64; RESP 16; TEMP 36.7; O2SAT 98
[2025-01-29 18:35] VITALS: BP 134/95; PULSE 77; TEMP 36.5; O2SAT 97
[2025-01-29 20:00] VITALS: BP 135/90; PULSE 80; TEMP 36.8; O2SAT 97
--- NOTE | 2025-01-29 20:43 | PC.ADMIT ---
Addendum entered by Hannah Wong RN 01/29/25 21:13: Entered in error: Patient does not use a CPAP and STOPBANG Assessment entered in error/ Wrong patient. Admitting Diagnosis: Depressive Disorder. Original Note: Mr. De Luna is a 69 year old male and father of 2 adult sons. He was brought to [facility] by his son on 01/27/25 after having a seizure in his trailer in [place] where he lives alone.? Worsening depression, hopelessness, poor sleep, poor appetite and a recent weight loss of 20lbs. He denies SI /HI /AVH.? Admitted from the pod via wheelchair at 6:30pm.? He signed a CV prior to arrival on the unit. Cooperative with skin/ safety check which was unremarkable. He said he was a patient here once many years ago.? Mr. De Luna describes a life of isolation in which he has no friends and nothing to do. When asked about his sons? involvement in his life he responded, ?They have their own lives.? They are busy.?He denies previous suicide attempts but does report that he has, ?practiced?, twice.? When asked to elaborate, he said he has cut himself with a knife, the first time many years ago, and again, about a month ago. He denies other self injurious behavior. He initially stated that he felt, ?safer here?, but later said he felt uncomfortable here and asked if he was admitted to the wrong unit. He did seem a bit confused, needing to be shown where his room was 3 separate times, and also stated that he was 71 years old when asked his age. He smokes about a pack of cigarettes daily and has smoked for 50 years.? He is interested in NRT but not in [facility]. He said he drinks? approximately 2 beers and up to a bottle of wine daily.? Last drink 1 week ago. He denies a history of ETOH withdrawal symptoms. He declined an addictions consult. Tox screen was negative. He denies other drug use except for cannabis which he smokes very rarely, ?about twice a year.? Placed on safety checks q 15 minutes. Medically he has a history of seizures for which he takes depakote. Depakote level slightly elevated at 100.8. He also has chronic kidney disease and uses a CPAP however he did not bring it with him. STOPBANG assessment = 4 high risk. No known drug or food allergies.
--- NOTE | 2025-01-30 02:07 | PC.NURSE ---
Late documentation. During evening assessment, this patient was confused about the date, stating I'm retired. I have no reason to keep track of the days. This ad writer asked the patient if he had a medication organizer at home, the patient stated he does not. He was oriented to month and year, but unclear on the date and day. He also had difficulty telling this ad writer which hospital we were in.
[2025-01-30 08:00] VITALS: BP 112/82; PULSE 77; RESP 15; TEMP 36.7; O2SAT 96
[2025-01-30 08:28] LABS: Hemoglobin A1C 120.0485 umol/L; Total Hemoglobin (HGBA1C) 3869.3346 umol/L
[2025-01-30 08:41] LABS: Alanine Aminotransferase 18 U/L (0-40); Albumin Level 4.4 g/dL (3.5-5.0); Alkaline Phosphatase 72 U/L (39-117); Anion Gap 12 (12-20); Aspartate Amino Transferase 22 U/L (5-37); Blood Urea Nitrogen 41 mg/dL (9-16); Calcium 9.4 mg/dL (8.4-10.2); Carbon Dioxide 26 mmol/L (22-29); Chloride 109 mmol/L (96-108); Cholesterol 177 mg/dL (<200); Creatinine Clr Calc Pharmacy 28.7; Estimated Glomerular Filt Rate 25; HDL Cholesterol 43 mg/dL (>40); Potassium 4.3 mmol/L (3.3-5.1); Sodium 143 mmol/L (135-145); Total Protein 7.3 g/dL (6.5-8.0); Triglycerides 112 mg/dL (<150)
--- NOTE | 2025-01-30 16:00 | HO.PSYADMNOT ---
HPI Date of Service: 01/30/25 Chief Complaint: crisis eval Sources of Information: patient interviewed, chart reviewed and crisis/core team assessment reviewed Additional Sources of Information: Pt seen 11am HPI Subjective Notes: G[place]a Warning and Conditional Voluntary Healthcare Proxy: No Guardianship: No Medical Problems Affecting Mental Status: No Narrative: 69 yo male, self [place] [facility] [place]. Pt reports an increase in depressive sx, weight loss, and seizures along with poor sleep. Pt reports not taking medications regularly. He reports he needs help getting through this phase in his life. Describes feeling confusion and being out of place. States that [employer] he took a hit of cannabis and was drinking and had a seizure. Over the last 6 weeks he has been using 1 24oz beer and 1 bottle of wine daily. Feels he has no purpose in life. Purpose was lost when he retired 10 years ago from [employer] Past Psychiatric History: [place] [place] OP: Caitlyn Valles MD SA: Denies, SI: Denies Denies perceptual alterations MOCA today is Medical Evaluation Reviewed: Yes [facility] Medical History (Updated 01/30/25 @ 18:06 by Ludivina Longoria APRN) Alcohol use disorder Narrative: Seizures by history Family History: Denies Social History: Born in [place], raised in [place] by both parents. One sister, two step brothers. Childhood was OK until he was older. Tearful when describing parents divorce when he was 16-he needed to move to a different town, lost friends and needed to go to a different school. As a result he quit school, got his GED. Reports a terrible marriage, 2 sons Substance History: Alcohol- 1 bottle of wine daily for the past 6 weeks along with one 24 oz beer Trauma History: Parents divorce Diagnostics Vital Signs (24Hr): Vital Signs - 24 hr 01/29/25 18:35 01/29/25 20:00 01/30/25 08:00 Temperature 97.7 F 98.2 F 98.1 F Pulse Rate 77 80 77 Respiratory Rate 15 Blood Pressure 134/95 H 135/90 H 112/82 Pulse Oximetry 97 97 96 Oxygen Delivery Method Room Air Room Air Room Air BMI result Body Mass Index 22.9 Labs 01/27/25 09:16 01/30/25 07:56 Labs: Laboratory Results - last 48 hr 01/30/25 07:56 Sodium 143 Potassium 4.3 Chloride 109 H Carbon Dioxide 26 Anion Gap 12 BUN 41 H Creatinine 2.59 H Estim Creat Clear Calc 28.7 Estimated GFR 25 Random Glucose 92 Estimat Average Glucose 97 Hemoglobin A1c % 5.0 Calcium 9.4 Total Bilirubin 0.2 AST 22 ALT 18 Alkaline Phosphatase 72 Total Protein 7.3 Albumin 4.4 Triglycerides 112 Cholesterol 177 LDL Cholesterol, Calc 112 H HDL Cholesterol 43 TSH 1.30 Imaging Radiology Impressions: ITS Impressions Cervical Spine CT 01/27/25 09:20 IMPRESSION: Multilevel cervical spondylosis without acute fracture or trauma-related listhesis. Fleischner guidelines were followed. Electronically signed by: Twin Saavedra MD 01/27/2025 11:03 AM EDT RP Head CT 01/27/25 09:20 IMPRESSION: No acute fracture, bony calvarium. No acute intracranial hemorrhage. Electronically signed by: Twin Saavedra MD 01/27/2025 11:06 AM EDT RP Chest X-Ray 01/27/25 10:20 IMPRESSION: No acute disease. Mild degenerative disc disease in the midthoracic spine. Electronically signed by: Kris Ordonez MD 01/27/2025 10:35 AM EDT RP Meds/Allergies Meds Home Medications ?Medication ?Instructions ?Recorded ?Confirmed ?Type cholecalciferol (vitamin D3) 25 25 mcg PO DAILY 01/28/25 01/28/25 History mcg (1,000 unit) tablet (Vitamin D3) divalproex 500 mg tablet,delayed 1,000 mg PO BEDTIME 01/28/25 01/28/25 History release divalproex 500 mg tablet,delayed 500 mg PO DAILY 01/28/25 01/28/25 History release vitamin B complex 1 tab PO DAILY 01/28/25 01/28/25 History Allergies Allergies Allergy/AdvReac Type Severity Reaction Status Date / Time No Known Allergies Allergy Mild NONE Verified 01/27/25 09:01 Mental Status Exam Mental Status Exam Patient Appearance: Fatigued Patient Orientation: Person, Place, Time and Situation Level of Consciousness: Alert Patient Behavior: Talkative Mood Description: Depressed Affect Description: Flat Patient Cognition Impaired: No Ability to Follow Directions: Good Speech Pattern: Spontaneous Speech Memory Description: Episodic Impaired Hallucinations: None Delusions: Not Present Perceptual Disturbances: Depersonalization and Derealization Thought Process: Rumination Thought Content: positive for Perseveration Depressive Symptoms: Increased Fatigue and Loss of Energy Judgement: Fair Assessment & Plan Assessment & Plan (1) Depression: Status: Acute Code(s): F32.A - Depression, unspecified (2) Alcohol use disorder: Status: Acute Code(s): F10.90 - Alcohol use, unspecified, uncomplicated (3) Mild cognitive impairment: Status: Acute Code(s): G31.84 - Mild cognitive impairment of uncertain or unknown etiology Plan Admit, CV, 15 minute checks Encourage milieu involvement Collateral Contact Diagnostics as needed Continue current regime Remeron 7.5 mg HS to begin to address depressive sx Folic Acid, MVI, Thiamine CIWA MOCA today Lorazepam prn for detox coverage Discussed with pt if he prefers geriatric adult unit and he would like to remain on M5 at this time Patient educated on: therapeutic strategies Reason for continued inpatient stay Substantial Risk for: rapid decompensation Statement Statement: I have reviewed the history and physical and performed a pertinent examination on my patient. No changes have occurred unless specified. If the History and Physical was not performed prior to admission, the Hospitalist's service will be consulted for completing the admission physical. Time Spent With Patient Time: Total time managing care of this patient today ____ minutes.
[2025-01-30 20:00] VITALS: BP 141/80; PULSE 120; RESP 16; TEMP 36.4; O2SAT 97
[2025-01-31 08:19] VITALS: BP 142/80; PULSE 85; TEMP 36.7; O2SAT 98
--- NOTE | 2025-01-31 16:53 | HO.PSYCHPN ---
Subjective Subjective Date of Service: 01/31/25 Reason For Visit: crisis eval Interim History: Patient seen and discussed with RN. Patient reports since admission his mood has leveled off . He has been compliant with medications. tolerating them without side effects. Denies SI. Review of Systems Review of Systems tired, confused. Yes all other systems are reviewed and are negative Mental Status Exam Mental Status Exam Patient Appearance: Fatigued Patient Orientation: Person, Place, Time and Situation Level of Consciousness: Alert Patient Behavior: Talkative Mood Description: Depressed Affect Description: Flat Patient Cognition Impaired: No Ability to Follow Directions: Good Speech Pattern: Spontaneous Speech Memory Description: Episodic Impaired Diagnostics Vital Signs (24Hr): Vital Signs - 24 hr 01/30/25 20:00 01/31/25 08:19 Temperature 97.5 F 98.1 F Pulse Rate 120 H 85 Respiratory Rate 16 Blood Pressure 141/80 H 142/80 H Pulse Oximetry 97 98 Oxygen Delivery Method Room Air Room Air BMI result Body Mass Index 22.9 Labs 01/27/25 09:16 01/30/25 07:56 Labs: Laboratory Results - last 48 hr 01/30/25 07:56 Sodium 143 Potassium 4.3 Chloride 109 H Carbon Dioxide 26 Anion Gap 12 BUN 41 H Creatinine 2.59 H Estim Creat Clear Calc 28.7 Estimated GFR 25 Random Glucose 92 Estimat Average Glucose 97 Hemoglobin A1c % 5.0 Calcium 9.4 Total Bilirubin 0.2 AST 22 ALT 18 Alkaline Phosphatase 72 Total Protein 7.3 Albumin 4.4 Triglycerides 112 Cholesterol 177 LDL Cholesterol, Calc 112 H HDL Cholesterol 43 TSH 1.30 Imaging Radiology Impressions: ITS Impressions Cervical Spine CT 01/27/25 09:20 IMPRESSION: Multilevel cervical spondylosis without acute fracture or trauma-related listhesis. Fleischner guidelines were followed. Electronically signed by: Twin Saavedra MD 01/27/2025 11:03 AM EDT RP Head CT 01/27/25 09:20 IMPRESSION: No acute fracture, bony calvarium. No acute intracranial hemorrhage. Electronically signed by: Twin Saavedra MD 01/27/2025 11:06 AM EDT RP Chest X-Ray 01/27/25 10:20 IMPRESSION: No acute disease. Mild degenerative disc disease in the midthoracic spine. Electronically signed by: Kris Ordonez MD 01/27/2025 10:35 AM EDT RP Medications Medications Current Medications Acetaminophen (Acetaminophen 325 Mg Tablet) 650 mg PO Q6H PRN PRN Reason: Headache/Pain, Scale 1-10 Al Hydroxide/Mg Hydroxide (Magnesium Hydrox/Alum Hydrox 30 Ml Oral.Susp) 30 ml PO Q6H PRN PRN Reason: Heartburn/Nausea Divalproex Sodium (Divalproex Sodium 500 Mg Tablet.) 500 mg PO DAILY [facility] Last Admin: 01/31/25 09:07 Dose: 500 mg Divalproex Sodium (Divalproex Sodium 500 Mg Tablet.) 1,000 mg PO BEDTIME [facility] Last Admin: 01/30/25 21:32 Dose: 1,000 mg Folic Acid (Folic Acid 1 Mg Tablet) 1 mg PO DAILY [facility] Last Admin: 01/31/25 09:06 Dose: 1 mg Hydroxyzine HCl (Hydroxyzine Hcl 25 Mg Tablet) 25 mg PO Q6H PRN PRN Reason: mild anxiety Last Admin: 01/30/25 06:32 Dose: 25 mg Lorazepam (Lorazepam 1 Mg Tablet) 1 mg PO Q2H PRN PRN Reason: ciwa 6-10 Last Admin: 01/30/25 11:48 Dose: 1 mg Lorazepam (Lorazepam 1 Mg Tablet) 2 mg PO Q2H PRN PRN Reason: ciwa 11+ Magnesium Hydroxide (Milk Of Magnesia 30 Ml Oral.Susp) 30 ml PO DAILY PRN PRN Reason: Constipation Mirtazapine (Mirtazapine 7.5 Mg Tablet) 7.5 mg PO BEDTIME [facility] Last Admin: 01/30/25 21:32 Dose: 7.5 mg Multivitamins/Vitamin C (Multivitamin Tablet) 1 tab PO DAILY [facility] Last Admin: 01/31/25 09:06 Dose: 1 tab Nicotine (Nicotine 21 Mg Patch.Td24) 21 mg TRANSDERMA DAILY PRN PRN Reason: smoking cessation Nicotine Polacrilex (Nicotine Polacrilex 2 Mg Gum) 4 mg BUCCAL Q2H PRN PRN Reason: Nicotine Cravings Olanzapine (Olanzapine 5 Mg Tablet) 5 mg PO TID PRN PRN Reason: agitation Thiamine HCl (Thiamine Hcl 100 Mg Tablet) 100 mg PO DAILY [facility] Last Admin: 01/31/25 09:06 Dose: 100 mg Trazodone HCl (Trazodone Hcl 50 Mg Tablet) 50 mg PO BEDTIME MRX1 PRN PRN Reason: Insomnia Vitamin D (Cholecalciferol (Vitamin D3) 25 Mcg Tablet) 25 mcg PO DAILY [facility] Last Admin: 01/31/25 09:06 Dose: 25 mcg Allergies Allergies Allergy/AdvReac Type Severity Reaction Status Date / Time No Known Allergies Allergy Mild NONE Verified 01/27/25 09:01 Assessment & Plan Assessment & Plan (1) Depression: Status: Acute Code(s): F32.A - Depression, unspecified (2) Alcohol use disorder: Status: Acute Code(s): F10.90 - Alcohol use, unspecified, uncomplicated (3) Mild cognitive impairment: Status: Acute Code(s): G31.84 - Mild cognitive impairment of uncertain or unknown etiology Plan Admit, CV, 15 minute checks Encourage milieu involvement Collateral Contact Diagnostics as needed Continue current regime Remeron 7.5 mg HS to begin to address depressive sx Folic Acid, MVI, Thiamine CIWA MOCA today Lorazepam prn for detox coverage Discussed with pt if he prefers geriatric adult unit and he would like to remain on M5 at this time 01/31: Continue current management and treatment plan. Reason for continued inpatient stay Substantial Risk for: inability to function, rapid decompensation and med/psych decompensation Time Spent With Patient Time: Total time managing care of this patient today ____ minutes.
[2025-01-31 20:00] VITALS: BP 124/88; PULSE 92; RESP 16; TEMP 36.5; O2SAT 97
--- NOTE | 2025-02-01 05:32 | PC.NURSE ---
Patient complained of poor sleep pattern. During scheduled CIWA assessments he was denying any anxiety, or other withdrawal symptoms. HE complained of insomnia and was given PRN Trazodone with some effect around 2am. At 5 am he complained of light sweat, tremors in both hands and anxiety. CIWA assessment score was 6. PRN Ativan was given.
[2025-02-01 07:57] VITALS: BP 164/99; PULSE 89; TEMP 36.3; O2SAT 96
[2025-02-01 12:31] VITALS: BP 139/99; PULSE 87; TEMP 37.2; O2SAT 98
--- NOTE | 2025-02-01 16:22 | P.PNPSI_ITS ---
Subjective Subjective Date of Service: 02/01/25 Reason For Visit: crisis eval Interim History: Patient seen and discussed with RN. Patient reports he had problems sleeping. RN reports he remains depressed. Denies SI. Tolerating medications.Episode of incontinence. Patient reports since admission his mood is better. He is isolative. Denies SI. Review of Systems Review of Systems tired, confused. Yes all other systems are reviewed and are negative Mental Status Exam Mental Status Exam Patient Appearance: Fatigued Patient Orientation: Person, Place, Time and Situation Level of Consciousness: Alert Patient Behavior: Talkative Mood Description: Depressed Affect Description: Flat Patient Cognition Impaired: No Ability to Follow Directions: Good Speech Pattern: Spontaneous Speech Memory Description: Episodic Impaired Diagnostics Vital Signs (24Hr): Vital Signs - 24 hr 01/31/25 20:00 02/01/25 07:57 02/01/25 12:31 Temperature 97.7 F 97.4 F 98.9 F Pulse Rate 92 89 87 Respiratory Rate 16 Blood Pressure 124/88 164/99 H 139/99 H Pulse Oximetry 97 96 98 Oxygen Delivery Method Room Air Room Air Room Air BMI result Body Mass Index 22.9 Labs 01/27/25 09:16 01/30/25 07:56 Imaging Radiology Impressions: ITS Impressions Cervical Spine CT 01/27/25 09:20 IMPRESSION: Multilevel cervical spondylosis without acute fracture or trauma-related listhesis. Fleischner guidelines were followed. Electronically signed by: Twin Saavedra MD 01/27/2025 11:03 AM EDT RP Head CT 01/27/25 09:20 IMPRESSION: No acute fracture, bony calvarium. No acute intracranial hemorrhage. Electronically signed by: Twin Saavedra MD 01/27/2025 11:06 AM EDT Chest X-Ray 01/27/25 10:20 IMPRESSION: No acute disease. Mild degenerative disc disease in the midthoracic spine. Electronically signed by: Kris Ordonez MD 01/27/2025 10:35 AM EDT Medications Medications Current Medications Acetaminophen (Acetaminophen 325 Mg Tablet) 650 mg PO Q6H PRN PRN Reason: Headache/Pain, Scale 1-10 Al Hydroxide/Mg Hydroxide (Magnesium Hydrox/Alum Hydrox 30 Ml Oral.Susp) 30 ml PO Q6H PRN PRN Reason: Heartburn/Nausea Divalproex Sodium (Divalproex Sodium 500 Mg Tablet.Dr) 500 mg PO DAILY [facility] Last Admin: 02/01/25 08:20 Dose: 500 mg Divalproex Sodium (Divalproex Sodium 500 Mg Tablet.Dr) 1,000 mg PO BEDTIME [facility] Last Admin: 01/31/25 20:15 Dose: 1,000 mg Folic Acid (Folic Acid 1 Mg Tablet) 1 mg PO DAILY [facility] Last Admin: 02/01/25 08:20 Dose: 1 mg Hydroxyzine HCl (Hydroxyzine Hcl 25 Mg Tablet) 25 mg PO Q6H PRN PRN Reason: mild anxiety Last Admin: 01/30/25 06:32 Dose: 25 mg Lorazepam (Lorazepam 1 Mg Tablet) 1 mg PO Q2H PRN PRN Reason: ciwa 6-10 Last Admin: 02/01/25 05:14 Dose: 1 mg Lorazepam (Lorazepam 1 Mg Tablet) 2 mg PO Q2H PRN PRN Reason: ciwa 11+ Magnesium Hydroxide (Milk Of Magnesia 30 Ml Oral.Susp) 30 ml PO DAILY PRN PRN Reason: Constipation Mirtazapine (Mirtazapine 15 Mg Tablet) 15 mg PO BEDTIME [facility] Multivitamins/Vitamin C (Multivitamin Tablet) 1 tab PO DAILY [facility] Last Admin: 02/01/25 08:20 Dose: 1 tab Nicotine (Nicotine 21 Mg Patch.Td24) 21 mg TRANSDERMA DAILY PRN PRN Reason: smoking cessation Nicotine Polacrilex (Nicotine Polacrilex 2 Mg Gum) 4 mg BUCCAL Q2H PRN PRN Reason: Nicotine Cravings Olanzapine (Olanzapine 5 Mg Tablet) 5 mg PO TID PRN PRN Reason: agitation Thiamine HCl (Thiamine Hcl 100 Mg Tablet) 100 mg PO DAILY [facility] Last Admin: 02/01/25 08:20 Dose: 100 mg Trazodone HCl (Trazodone Hcl 50 Mg Tablet) 50 mg PO BEDTIME MRX1 PRN PRN Reason: Insomnia Last Admin: 02/01/25 02:40 Dose: 50 mg Vitamin D (Cholecalciferol (Vitamin D3) 25 Mcg Tablet) 25 mcg PO DAILY [facility] Last Admin: 02/01/25 08:20 Dose: 25 mcg Allergies Allergies Allergy/AdvReac Type Severity Reaction Status Date / Time No Known Allergies Allergy Mild NONE Verified 01/27/25 09:01 Assessment & Plan Assessment & Plan (1) Depression: Status: Acute Code(s): F32.A - Depression, unspecified (2) Alcohol use disorder: Status: Acute Code(s): F10.90 - Alcohol use, unspecified, uncomplicated (3) Mild cognitive impairment: Status: Acute Code(s): G31.84 - Mild cognitive impairment of uncertain or unknown etiology Plan Admit, CV, 15 minute checks Encourage milieu involvement Collateral Contact Diagnostics as needed Continue current regime Remeron 7.5 mg HS to begin to address depressive sx Folic Acid, MVI, Thiamine CIWA MOCA today Lorazepam prn for detox coverage Discussed with pt if he prefers geriatric adult unit and he would like to remain on M5 at this time 01/31: Continue current management and treatment plan. 02/01: Increase Remeron to 15 mg. Reason for continued inpatient stay Substantial Risk for: inability to function and rapid decompensation Time Spent With Patient Time: Total time managing care of this patient today ____ minutes.
[2025-02-01 20:00] VITALS: BP 142/88; PULSE 92; RESP 18; TEMP 36.8; O2SAT 100
[2025-02-02 07:55] VITALS: BP 140/89; PULSE 95; RESP 18; TEMP 37.1; O2SAT 97
--- NOTE | 2025-02-02 10:10 | P.PNPSI_ITS ---
Subjective Subjective Date of Service: 02/02/25 Reason For Visit: crisis eval Subjective Notes: Conditional Voluntary and 3 Day Healthcare Proxy: No Guardianship: No Medical Problems Affecting Mental Status: No Interim History: Detox completed. CIWA discontinued. MOCA 14/30 (moderate cognitive impairment). Angry when seen today. I have no confidence in my family . They don't connect with me . I talked with my son yesterday and he does not believe in me . Pt is open to a family meeting to discuss his perceptions with [place]. Son tells team in addiction to drinking, using cannabis, pt has lost approx 20 lbs, has not been eating, is isolative and is in need of day structure to help improve mood. Medication Compliance: Yes Side effects from medications: No Attending Groups: Intermittent Review of Systems Acute medical concerns: No Medical Review of Systems: unchanged Review of Systems Review of Systems no Mental Status Exam Mental Status Exam Patient Appearance: Fatigued and Disheveled Patient Orientation: Person, Place, Time and Situation Level of Consciousness: Alert Patient Behavior: Talkative and Good Eye Contact Mood Description: Blunted and Angry Affect Description: Blunted and Angry Patient Cognition Impaired: Yes Ability to Follow Directions: Good Speech Pattern: Spontaneous Speech Memory Description: Episodic Impaired Hallucinations: None Delusions: Not Present Thought Process: Goal Oriented Thought Content: positive for Goal Oriented and positive for Suicidal Ideation ( Never ) Judgement: Fair Diagnostics Vital Signs (24Hr): Vital Signs - 24 hr 02/01/25 12:31 02/01/25 20:00 02/02/25 07:55 Temperature 98.9 F 98.2 F 98.7 F Pulse Rate 87 92 95 Respiratory Rate 18 18 Blood Pressure 139/99 H 142/88 H 140/89 H Pulse Oximetry 98 100 97 Oxygen Delivery Method Room Air Room Air Room Air BMI result Body Mass Index 22.9 Labs 01/27/25 09:16 01/30/25 07:56 Imaging Radiology Impressions: ITS Impressions Cervical Spine CT 01/27/25 09:20 IMPRESSION: Multilevel cervical spondylosis without acute fracture or trauma-related listhesis. Fleischner guidelines were followed. Electronically signed by: Twin Saavedra MD 01/27/2025 11:[address] 01/27/25 09:20 IMPRESSION: No acute fracture, bony calvarium. No acute intracranial hemorrhage. Electronically signed by: wTin Saavedra MD 01/27/2025 11:06 AM EDT RP Chest X-Ray 01/27/25 10:20 IMPRESSION: No acute disease. Mild degenerative disc disease in the midthoracic spine. Electronically signed by: Kris Ordonez MD 01/27/2025 10:35 AM EDT RP Medications Medications Current Medications Acetaminophen (Acetaminophen 325 Mg Tablet) 650 mg PO Q6H PRN PRN Reason: Headache/Pain, Scale 1-10 Al Hydroxide/Mg Hydroxide (Magnesium Hydrox/Alum Hydrox 30 Ml Oral.Susp) 30 ml PO Q6H PRN PRN Reason: Heartburn/Nausea Divalproex Sodium (Divalproex Sodium 500 Mg Tablet.) 500 mg PO DAILY [facility] Last Admin: 02/02/25 08:34 Dose: 500 mg Divalproex Sodium (Divalproex Sodium 500 Mg Tablet.) 1,000 mg PO BEDTIME [facility] Last Admin: 02/01/25 21:52 Dose: 1,000 mg Folic Acid (Folic Acid 1 Mg Tablet) 1 mg PO DAILY [facility] Last Admin: 02/02/25 08:34 Dose: 1 mg Hydroxyzine HCl (Hydroxyzine Hcl 25 Mg Tablet) 25 mg PO Q6H PRN PRN Reason: mild anxiety Last Admin: 02/01/25 21:52 Dose: 25 mg Magnesium Hydroxide (Milk Of Magnesia 30 Ml Oral.Susp) 30 ml PO DAILY PRN PRN Reason: Constipation Mirtazapine (Mirtazapine 15 Mg Tablet) 15 mg PO BEDTIME [facility] Last Admin: 02/01/25 21:52 Dose: 15 mg Multivitamins/Vitamin C (Multivitamin Tablet) 1 tab PO DAILY [facility] Last Admin: 02/02/25 08:34 Dose: 1 tab Nicotine (Nicotine 21 Mg Patch.Td24) 21 mg TRANSDERMA DAILY PRN PRN Reason: smoking cessation Nicotine Polacrilex (Nicotine Polacrilex 2 Mg Gum) 4 mg BUCCAL Q2H PRN PRN Reason: Nicotine Cravings Olanzapine (Olanzapine 5 Mg Tablet) 5 mg PO TID PRN PRN Reason: agitation Thiamine HCl (Thiamine Hcl 100 Mg Tablet) 100 mg PO DAILY [facility] Last Admin: 02/02/25 08:34 Dose: 100 mg Trazodone HCl (Trazodone Hcl 50 Mg Tablet) 50 mg PO BEDTIME MRX1 PRN PRN Reason: Insomnia Last Admin: 02/01/25 21:53 Dose: 50 mg Vitamin D (Cholecalciferol (Vitamin D3) 25 Mcg Tablet) 25 mcg PO DAILY [facility] Last Admin: 02/02/25 08:34 Dose: 25 mcg Allergies Allergies Allergy/AdvReac Type Severity Reaction Status Date / Time No Known Allergies Allergy Mild NONE Verified 01/27/25 09:01 Assessment & Plan Assessment & Plan (1) Depression: Status: Acute Code(s): F32.A - Depression, unspecified (2) Alcohol use disorder: Status: Acute Code(s): F10.90 - Alcohol use, unspecified, uncomplicated (3) Mild cognitive impairment: Status: Acute Code(s): G31.84 - Mild cognitive impairment of uncertain or unknown etiology Plan Admit, CV, 15 minute checks Encourage milieu involvement Collateral Contact Diagnostics as needed Continue current regime Remeron 7.5 mg HS to begin to address depressive sx Folic Acid, MVI, Thiamine CIWA MOCA today Lorazepam prn for detox coverage Discussed with pt if he prefers geriatric adult unit and he would like to remain on M5 at this time 01/31: Continue current management and treatment plan. 02/01: Increase Remeron to 15 mg. 02/02: Continue tx Reason for continued inpatient stay Substantial Risk for: rapid decompensation and med/psych decompensation Time Spent With Patient Time: Total time managing care of this patient today ____ minutes.
[2025-02-02 20:06] VITALS: BP 134/85; PULSE 96; TEMP 36.8; O2SAT 97
[2025-02-03] MEDS: Milk of Magnesia 30 ML ORAL.SUSP PO (09:49)
--- NOTE | 2025-02-03 17:33 | HO.PSYCHPN ---
Subjective Subjective Date of Service: 02/03/25 Reason For Visit: crisis eval Subjective Notes: Conditional Voluntary and 3 Day (retracted 02/03/25) Healthcare Proxy: No Guardianship: No Medical Problems Affecting Mental Status: No Interim History: Pt retracted three day notice. I think I do need to stay longer. I am just not 100% myself . Met with pt's son, review of MOCA, ACLS results of 4.2-requires living supervision. Discussed current decline possibly being from alcohol use and need for more time and intervention Pt acknowledges cognitive decline-reports needing help paying bills and scheduling appointments Pt wanting to smoke, that is why I want to go . Declined patch/gum, then reconsidered. Valproate level 58.[address] Kerr, pt's OP Psychiatrist. Medication Compliance: Yes Side effects from medications: No Attending Groups: No Review of Systems Review of Systems I just don't feel like myself. Mental Status Exam Mental Status Exam Patient Appearance: Fatigued and Disheveled Patient Orientation: Person, Place, Time and Situation Level of Consciousness: Alert Patient Behavior: Talkative and Good Eye Contact Mood Description: Blunted Affect Description: Blunted Patient Cognition Impaired: Yes Ability to Follow Directions: Good Speech Pattern: Spontaneous Speech Memory Description: Episodic Impaired Hallucinations: None Delusions: Not Present Thought Process: Goal Oriented Thought Content: positive for Goal Oriented and positive for Suicidal Ideation ( Never ) Judgement: Poor Diagnostics Vital Signs (24Hr): Vital Signs - 24 hr 02/02/25 20:06 Temperature 98.3 F Pulse Rate 96 Blood Pressure 134/85 Pulse Oximetry 97 Oxygen Delivery Method Room Air BMI result Body Mass Index 22.9 Labs 01/27/25 09:16 01/30/25 07:56 Labs: Laboratory Results - last 48 hr 02/03/25 08:01 Valproic Acid 58.7 Imaging Radiology Impressions: ITS Impressions Cervical Spine CT 01/27/25 09:20 IMPRESSION: Multilevel cervical spondylosis without acute fracture or trauma-related listhesis. Fleischner guidelines were followed. Electronically signed by: Twin Saavedra MD 01/27/2025 11:[address] 01/27/25 09:20 IMPRESSION: No acute fracture, bony calvarium. No acute intracranial hemorrhage. Electronically signed by: Twin Saavedra MD 01/27/2025 11:06 AM EDT RP Chest X-Ray 01/27/25 10:20 IMPRESSION: No acute disease. Mild degenerative disc disease in the midthoracic spine. Electronically signed by: Kris Ordonez MD 01/27/2025 10:35 AM EDT RP Medications Medications Current Medications Acetaminophen (Acetaminophen 325 Mg Tablet) 650 mg PO Q6H PRN PRN Reason: Headache/Pain, Scale 1-10 Al Hydroxide/Mg Hydroxide (Magnesium Hydrox/Alum Hydrox 30 Ml Oral.Susp) 30 ml PO Q6H PRN PRN Reason: Heartburn/Nausea Divalproex Sodium (Divalproex Sodium 500 Mg Tablet.) 500 mg PO DAILY [facility] Last Admin: 02/03/25 09:45 Dose: 500 mg Divalproex Sodium (Divalproex Sodium 500 Mg Tablet.) 1,000 mg PO BEDTIME [facility] Last Admin: 02/02/25 20:59 Dose: 1,000 mg Folic Acid (Folic Acid 1 Mg Tablet) 1 mg PO DAILY [facility] Last Admin: 02/03/25 09:45 Dose: 1 mg Hydroxyzine HCl (Hydroxyzine Hcl 25 Mg Tablet) 25 mg PO Q6H PRN PRN Reason: mild anxiety Last Admin: 02/01/25 21:52 Dose: 25 mg Magnesium Hydroxide (Milk Of Magnesia 30 Ml Oral.Susp) 30 ml PO DAILY PRN PRN Reason: Constipation Last Admin: 02/03/25 09:49 Dose: 30 ml Mirtazapine (Mirtazapine 15 Mg Tablet) 15 mg PO BEDTIME [facility] Last Admin: 02/02/25 20:59 Dose: 15 mg Multivitamins/Vitamin C (Multivitamin Tablet) 1 tab PO DAILY [facility] Last Admin: 02/03/25 09:45 Dose: 1 tab Nicotine (Nicotine 21 Mg Patch.Td24) 21 mg TRANSDERMA DAILY PRN PRN Reason: smoking cessation Nicotine Polacrilex (Nicotine Polacrilex 2 Mg Gum) 4 mg BUCCAL Q2H PRN PRN Reason: Nicotine Cravings Olanzapine (Olanzapine 5 Mg Tablet) 5 mg PO TID PRN PRN Reason: agitation Thiamine HCl (Thiamine Hcl 100 Mg Tablet) 100 mg PO DAILY [facility] Last Admin: 02/03/25 09:45 Dose: 100 mg Trazodone HCl (Trazodone Hcl 50 Mg Tablet) 50 mg PO BEDTIME MRX1 PRN PRN Reason: Insomnia Last Admin: 02/01/25 21:53 Dose: 50 mg Vitamin D (Cholecalciferol (Vitamin D3) 25 Mcg Tablet) 25 mcg PO DAILY [facility] Last Admin: 02/03/25 09:45 Dose: 25 mcg Allergies Allergies Allergy/AdvReac Type Severity Reaction Status Date / Time No Known Allergies Allergy Mild NONE Verified 01/27/25 09:01 Assessment & Plan Assessment & Plan (1) Depression: Status: Acute Code(s): F32.A - Depression, unspecified (2) Alcohol use disorder: Status: Acute Code(s): F10.90 - Alcohol use, unspecified, uncomplicated (3) Mild cognitive impairment: Status: Acute Code(s): G31.84 - Mild cognitive impairment of uncertain or unknown etiology Plan Admit, CV, 15 minute checks Encourage milieu involvement Collateral Contact Diagnostics as needed Continue current regime Remeron 7.5 mg HS to begin to address depressive sx Folic Acid, MVI, Thiamine CIWA MOCA today Lorazepam prn for detox coverage Discussed with pt if he prefers geriatric adult unit and he would like to remain on M5 at this time 01/31: Continue current management and treatment plan. 02/01: Increase Remeron to 15 mg. 02/02: Continue tx 02/03: B12, Folate, Ammonia Reason for continued inpatient stay Substantial Risk for: rapid decompensation and med/psych decompensation Time Spent With Patient Time: Total time managing care of this patient today ____ minutes.
--- NOTE | 2025-02-03 18:32 | PC.NURSE ---
Pt's son Kenroy came up to ask for Ankit's keys and wallet and according to our inventory belongings sheet there was no keys or wallet that accompanied Ankit when he came from the ED behavioral health POD. Staff went to security office and a bag was found with pt's keys and wallet and labeled with his name. There was no belongings list indicating these items had been sent to security. These items brought to [facility] and inventoried and signed by pt indicating his permission to relinquish keys, wallet, and contents therein to his son Kenroy.
[2025-02-03 20:00] VITALS: BP 118/82; PULSE 81; RESP 16; TEMP 36.6; O2SAT 96
[2025-02-04 08:00] VITALS: BP 128/93; PULSE 95; TEMP 36.6; O2SAT 98
[2025-02-04 08:47] LABS: Ammonia 27 umol/L (13-55)
--- NOTE | 2025-02-04 09:27 | P.PNPSI_ITS ---
Subjective Subjective Date of Service: 02/04/25 Reason For Visit: crisis eval Interim History: Met with patient; discussed with team; reviewed chart Patient denies psychiatric symptoms . Says that his family meeting was all right Patient has little else to say. ACLS 4/6 MOCA KELLs pending Mental Status Exam Mental Status Exam Patient Appearance: Fatigued and Disheveled Patient Orientation: Person, Place and Time Level of Consciousness: Awake and Alert Patient Behavior: Cooperative, Passive and Good Eye Contact Mood Description: Withdrawn Affect Description: Withdrawn Patient Cognition Impaired: Yes Ability to Follow Directions: Fair Speech Pattern: Spontaneous Speech Memory Description: Episodic Impaired Hallucinations: None Delusions: Not Present Thought Process: Goal Oriented Thought Content: positive for Goal Oriented and positive for Suicidal Ideation (denies) Abnormal Motor Activity Signs and Symptoms: Psychomotor Retardation (some) Judgement: Poor Judgement and Insight: impaired Diagnostics Vital Signs (24Hr): Vital Signs - 24 hr 02/03/25 20:00 02/04/25 08:00 Temperature 97.9 F 97.9 F Pulse Rate 81 95 Respiratory Rate 16 Blood Pressure 118/82 128/93 H Pulse Oximetry 96 98 Oxygen Delivery Method Room Air Room Air BMI result Body Mass Index 22.9 Labs 01/27/25 09:16 01/30/25 07:56 Labs: Laboratory Results - last 48 hr 02/03/25 02/04/25 08:01 08:22 Ammonia 27 Valproic Acid 58.7 Imaging Radiology Impressions: ITS Impressions Cervical Spine CT 01/27/25 09:20 IMPRESSION: Multilevel cervical spondylosis without acute fracture or trauma-related listhesis. Fleischner guidelines were followed. Electronically signed by: Twin Saavedra MD 01/27/2025 11:03 AM EDT RP Head CT 01/27/25 09:20 IMPRESSION: No acute fracture, bony calvarium. No acute intracranial hemorrhage. Electronically signed by: Twin Saavedra MD 01/27/2025 11:06 AM EDT RP Chest X-Ray 01/27/25 10:20 IMPRESSION: No acute disease. Mild degenerative disc disease in the midthoracic spine. Electronically signed by: Kris Ordonez MD 01/27/2025 10:35 AM EDT RP Medications Medications Current Medications Acetaminophen (Acetaminophen 325 Mg Tablet) 650 mg PO Q6H PRN PRN Reason: Headache/Pain, Scale 1-10 Al Hydroxide/Mg Hydroxide (Magnesium Hydrox/Alum Hydrox 30 Ml Oral.Susp) 30 ml PO Q6H PRN PRN Reason: Heartburn/Nausea Divalproex Sodium (Divalproex Sodium 500 Mg Tablet.) 500 mg PO DAILY [facility] Last Admin: 02/04/25 08:16 Dose: 500 mg Divalproex Sodium (Divalproex Sodium 500 Mg Tablet.) 1,000 mg PO BEDTIME [facility] Last Admin: 02/03/25 20:52 Dose: 1,000 mg Folic Acid (Folic Acid 1 Mg Tablet) 1 mg PO DAILY [facility] Last Admin: 02/04/25 08:16 Dose: 1 mg Hydroxyzine HCl (Hydroxyzine Hcl 25 Mg Tablet) 25 mg PO Q6H PRN PRN Reason: mild anxiety Last Admin: 02/04/25 01:11 Dose: 25 mg Magnesium Hydroxide (Milk Of Magnesia 30 Ml Oral.Susp) 30 ml PO DAILY PRN PRN Reason: Constipation Last Admin: 02/03/25 09:49 Dose: 30 ml Mirtazapine (Mirtazapine 15 Mg Tablet) 15 mg PO BEDTIME [facility] [place] Last Admin: 02/03/25 20:52 Dose: 15 mg Multivitamins/Vitamin C (Multivitamin Tablet) 1 tab PO DAILY [facility] Last Admin: 02/04/25 08:16 Dose: 1 tab Nicotine (Nicotine 14 Mg Patch.Td24) 14 mg TRANSDERMA DAILY [facility] [place] Last Admin: 02/04/25 08:18 Dose: Not Given Nicotine Polacrilex (Nicotine Polacrilex 2 Mg Gum) 4 mg BUCCAL Q2H PRN PRN Reason: Nicotine Cravings Olanzapine (Olanzapine 5 Mg Tablet) 5 mg PO TID PRN PRN Reason: agitation Thiamine HCl (Thiamine Hcl 100 Mg Tablet) 100 mg PO DAILY [facility] [place] Last Admin: 02/04/25 08:16 Dose: 100 mg Trazodone HCl (Trazodone Hcl 50 Mg Tablet) 50 mg PO BEDTIME MRX1 PRN PRN Reason: Insomnia Last Admin: 02/04/25 01:11 Dose: 50 mg Vitamin D (Cholecalciferol (Vitamin D3) 25 Mcg Tablet) 25 mcg PO DAILY [facility] [place] Last Admin: 02/04/25 08:16 Dose: 25 mcg Allergies Allergies Allergy/AdvReac Type Severity Reaction Status Date / Time No Known Allergies Allergy Mild NONE Verified 01/27/25 09:01 Assessment & Plan Assessment & Plan (1) Depression: Status: Acute Code(s): F32.A - Depression, unspecified (2) Alcohol use disorder: Status: Acute Code(s): F10.90 - Alcohol use, unspecified, uncomplicated (3) Mild cognitive impairment: Status: Acute Code(s): G31.84 - Mild cognitive impairment of uncertain or unknown etiology Plan Hospital course: 01/31: Continue current management and treatment plan. 02/01: Increase Remeron to 15 mg. 02/02: Continue tx 02/03: B12, Folate, Ammonia 02/04 Patient denies psychiatric symptoms . Says that his family meeting was all right Patient has little else to say. ACLS 10/12 MOCA Shawna pending PLAN: Admit, CV, 15 minute checks Encourage milieu involvement Collateral Contact Diagnostics as needed Continue current regime Remeron 7.5 mg HS to begin to address depressive sx Folic Acid, MVI, Thiamine CIWA; Lorazepam prn for detox coverage Reason for continued inpatient stay Substantial Risk for: inability to function Time Spent With Patient Time: Total time managing care of this patient today ____ minutes.
[2025-02-04 09:28] LABS: Folate 6.9 ng/mL (> or = 4.0); Vitamin B12 460 pg/mL (200-900)
--- NOTE | 2025-02-04 11:36 | MHC.CLN ---
CONSULT CONSULT FOR WEIGHT LOSS. VISITED PATIENT ON UNIT. REPORTS GOOD APPETITE. WILLING TO TRY ENSURE SUPPLEMENT. ADDING ENSURE BID TO PROVIDE 700 KCALS, 40 G PROTEIN.
[2025-02-04 20:00] VITALS: BP 112/81; PULSE 73; TEMP 36.1; O2SAT 98
[2025-02-05 07:00] VITALS: BMI 24.2
[2025-02-05 08:00] VITALS: BP 115/89; TEMP 36.1
[2025-02-06 08:00] VITALS: BP 105/62; PULSE 65; TEMP 36.1; O2SAT 97
--- NOTE | 2025-02-06 13:34 | HO.PSYCHPN ---
Subjective Subjective Date of Service: 02/05/25 Reason For Visit: crisis eval Interim History: Late entry note for patient seen on 02/05/2025; discussed with team Patient says he is fine; to nursing he reported right foot pain but would not let anyone examine it; abstract writer inquired and patient says that it is old and been there a long time and that it is not any worse. Discussed transfer and patient to the geriatric floor for increased support; he said he was okay with that but wanted to make sure that his 3 day notice would remain intact which abstract writer confirmed Diagnostics Vital Signs (24Hr): Vital Signs - 24 hr 02/06/25 08:00 Temperature 96.9 F Pulse Rate 65 Blood Pressure 105/62 Pulse Oximetry 97 Oxygen Delivery Method Room Air BMI result Body Mass Index 24.2 Labs 01/27/25 09:16 01/30/25 07:56 Imaging Radiology Impressions: ITS Impressions Cervical Spine CT 01/27/25 09:20 IMPRESSION: Multilevel cervical spondylosis without acute fracture or trauma-related listhesis. Fleischner guidelines were followed. Electronically signed by: wTin Saavedra MD 01/27/2025 11:03 AM EDT RP Head CT 01/27/25 09:20 IMPRESSION: No acute fracture, bony calvarium. No acute intracranial hemorrhage. Electronically signed by: Twin Saavedra MD 01/27/2025 11:06 AM EDT Chest X-Ray 01/27/25 10:20 IMPRESSION: No acute disease. Mild degenerative disc disease in the midthoracic spine. Electronically signed by: Kris Ordonez MD 01/27/2025 10:35 AM EDT RP Medications Medications Current Medications Acetaminophen (Acetaminophen 325 Mg Tablet) 650 mg PO Q6H PRN PRN Reason: Headache/Pain, Scale 1-10 Al Hydroxide/Mg Hydroxide (Magnesium Hydrox/Alum Hydrox 30 Ml Oral.Susp) 30 ml PO Q6H PRN PRN Reason: Heartburn/Nausea Divalproex Sodium (Divalproex Sodium 500 Mg Tablet.) 500 mg PO DAILY [facility] Last Admin: 02/06/25 08:44 Dose: 500 mg Divalproex Sodium (Divalproex Sodium 500 Mg Tablet.) 1,000 mg PO BEDTIME [facility] Last Admin: 02/05/25 20:48 Dose: 1,000 mg Folic Acid (Folic Acid 1 Mg Tablet) 1 mg PO DAILY [facility] Last Admin: 02/06/25 08:46 Dose: Not Given Hydroxyzine HCl (Hydroxyzine Hcl 25 Mg Tablet) 25 mg PO Q6H PRN PRN Reason: mild anxiety Last Admin: 02/05/25 20:48 Dose: 25 mg Magnesium Hydroxide (Milk Of Magnesia 30 Ml Oral.Susp) 30 ml PO DAILY PRN PRN Reason: Constipation Last Admin: 02/03/25 09:49 Dose: 30 ml Mirtazapine (Mirtazapine 15 Mg Tablet) 15 mg PO BEDTIME [facility] Last Admin: 02/05/25 20:48 Dose: 15 mg Multivitamins/Vitamin C (Multivitamin Tablet) 1 tab PO DAILY [facility] Last Admin: 02/06/25 08:46 Dose: Not Given Nicotine (Nicotine 14 Mg Patch.Td24) 14 mg TRANSDERMA DAILY [facility] Last Admin: 02/06/25 08:46 Dose: Not Given Nicotine Polacrilex (Nicotine Polacrilex 2 Mg Gum) 4 mg BUCCAL Q2H PRN PRN Reason: Nicotine Cravings Olanzapine (Olanzapine 5 Mg Tablet) 5 mg PO TID PRN PRN Reason: agitation Thiamine HCl (Thiamine Hcl 100 Mg Tablet) 100 mg PO DAILY [facility] Last Admin: 02/06/25 08:46 Dose: Not Given Trazodone HCl (Trazodone Hcl 50 Mg Tablet) 50 mg PO BEDTIME MRX1 PRN PRN Reason: Insomnia Last Admin: 02/05/25 20:48 Dose: 50 mg Vitamin D (Cholecalciferol (Vitamin D3) 25 Mcg Tablet) 25 mcg PO DAILY [facility] Last Admin: 02/06/25 08:46 Dose: Not Given Allergies Allergies Allergy/AdvReac Type Severity Reaction Status Date / Time No Known Allergies Allergy Mild NONE Verified 01/27/25 09:01 Assessment & Plan Assessment & Plan (1) Depression: Status: Acute Code(s): F32.A - Depression, unspecified (2) Alcohol use disorder: Status: Acute Code(s): F10.90 - Alcohol use, unspecified, uncomplicated (3) Mild cognitive impairment: Status: Acute Code(s): G31.84 - Mild cognitive impairment of uncertain or unknown etiology Plan Hospital course: 01/31: Continue current management and treatment plan. 02/01: Increase Remeron to 15 mg. 02/02: Continue tx 02/03: B12, Folate, Ammonia 02/04 Patient denies psychiatric symptoms . Says that his family meeting was all right Patient has little else to say. 02/05 Patient says he is fine; to nursing he reported right foot pain but would not let anyone examine it; abstract writer inquired and patient says that it is old and been there a long time and that it is not any worse. Discussed transfer and patient to the geriatric floor for increased support; he said he was okay with that but wanted to make sure that his 3 day notice would remain intact which abstract writer confirmed ACLS 10/12 MOCA Shawna pending PLAN: Admit, 3 day 15 minute checks Encourage milieu involvement Collateral Contact Diagnostics as needed Continue current regime Remeron 7.5 mg HS to begin to address depressive sx Folic Acid, MVI, Thiamine CIWA; Lorazepam prn for detox coverage Patient educated on: diagnosis and therapeutic strategies Informed Consent: understands and further education needed Reason for continued inpatient stay Substantial Risk for: inability to function Time Spent With Patient Time: Total time managing care of this patient today ____ minutes.
--- NOTE | 2025-02-06 13:34 | HO.PSYCHPN ---
Subjective Subjective Date of Service: 02/06/25 Reason For Visit: crisis eval Interim History: Discussed case with team No change in presentation; being transferred to the geriatric unit to which patient is amenable Staff reports patient performed poorly on the Ana and that he needs assistance in all domains. Patient made statements that both of his sons were at the previous family meeting when only 1 was there. Discussed case with DANIELLA Irizarry who plans to file for civil commitment out of concern for patient's inability to be safe in the community Diagnostics Vital Signs (24Hr): Vital Signs - 24 hr 02/06/25 08:00 Temperature 96.9 F Pulse Rate 65 Blood Pressure 105/62 Pulse Oximetry 97 Oxygen Delivery Method Room Air BMI result Body Mass Index 24.2 Labs 01/27/25 09:16 01/30/25 07:56 Imaging Radiology Impressions: ITS Impressions Cervical Spine CT 01/27/25 09:20 IMPRESSION: Multilevel cervical spondylosis without acute fracture or trauma-related listhesis. Fleischner guidelines were followed. Electronically signed by: Twin Saavedra MD 01/27/2025 11:03 AM EDT RP Head CT 01/27/25 09:20 IMPRESSION: No acute fracture, bony calvarium. No acute intracranial hemorrhage. Electronically signed by: Twin Saavedra MD 01/27/2025 11:06 AM EDT RP Chest X-Ray 01/27/25 10:20 IMPRESSION: No acute disease. Mild degenerative disc disease in the midthoracic spine. Electronically signed by: Kris Ordonez MD 01/27/2025 10:35 AM EDT RP Medications Medications Current Medications Acetaminophen (Acetaminophen 325 Mg Tablet) 650 mg PO Q6H PRN PRN Reason: Headache/Pain, Scale 1-10 Al Hydroxide/Mg Hydroxide (Magnesium Hydrox/Alum Hydrox 30 Ml Oral.Susp) 30 ml PO Q6H PRN PRN Reason: Heartburn/Nausea Divalproex Sodium (Divalproex Sodium 500 Mg Tablet.) 500 mg PO DAILY [facility] Last Admin: 02/06/25 08:44 Dose: 500 mg Divalproex Sodium (Divalproex Sodium 500 Mg Tablet.) 1,000 mg PO BEDTIME [facility] Last Admin: 02/05/25 20:48 Dose: 1,000 mg Folic Acid (Folic Acid 1 Mg Tablet) 1 mg PO DAILY [facility] Last Admin: 02/06/25 08:46 Dose: Not Given Hydroxyzine HCl (Hydroxyzine Hcl 25 Mg Tablet) 25 mg PO Q6H PRN PRN Reason: mild anxiety Last Admin: 02/05/25 20:48 Dose: 25 mg Magnesium Hydroxide (Milk Of Magnesia 30 Ml Oral.Susp) 30 ml PO DAILY PRN PRN Reason: Constipation Last Admin: 02/03/25 09:49 Dose: 30 ml Mirtazapine (Mirtazapine 15 Mg Tablet) 15 mg PO BEDTIME [facility] Last Admin: 02/05/25 20:48 Dose: 15 mg Multivitamins/Vitamin C (Multivitamin Tablet) 1 tab PO DAILY [facility] Last Admin: 02/06/25 08:46 Dose: Not Given Nicotine (Nicotine 14 Mg Patch.Td24) 14 mg TRANSDERMA DAILY [facility] Last Admin: 02/06/25 08:46 Dose: Not Given Nicotine Polacrilex (Nicotine Polacrilex 2 Mg Gum) 4 mg BUCCAL Q2H PRN PRN Reason: Nicotine Cravings Olanzapine (Olanzapine 5 Mg Tablet) 5 mg PO TID PRN PRN Reason: agitation Thiamine HCl (Thiamine Hcl 100 Mg Tablet) 100 mg PO DAILY [facility] Last Admin: 02/06/25 08:46 Dose: Not Given Trazodone HCl (Trazodone Hcl 50 Mg Tablet) 50 mg PO BEDTIME MRX1 PRN PRN Reason: Insomnia Last Admin: 02/05/25 20:48 Dose: 50 mg Vitamin D (Cholecalciferol (Vitamin D3) 25 Mcg Tablet) 25 mcg PO DAILY [facility] Last Admin: 02/06/25 08:46 Dose: Not Given Allergies Allergies Allergy/AdvReac Type Severity Reaction Status Date / Time No Known Allergies Allergy Mild NONE Verified 01/27/25 09:01 Assessment & Plan Assessment & Plan (1) Depression: Status: Acute Code(s): F32.A - Depression, unspecified (2) Alcohol use disorder: Status: Acute Code(s): F10.90 - Alcohol use, unspecified, uncomplicated (3) Mild cognitive impairment: Status: Acute Code(s): G31.84 - Mild cognitive impairment of uncertain or unknown etiology Plan Hospital course: 01/31: Continue current management and treatment plan. 02/01: Increase Remeron to 15 mg. 02/02: Continue tx 02/03: B12, Folate, Ammonia 02/04 Patient denies psychiatric symptoms? .? Says that his family meeting was all right Patient has little else to say. 02/05 Patient says he is fine; to nursing he reported right foot pain but would not let anyone examine it; freelance writer inquired and patient says that it is old and been there a long time and that it is not any worse.? Discussed transfer and patient to the geriatric floor for increased support; he said he was okay with that but wanted to make sure that his 3 day notice would remain intact which freelance writer confirmed 02/06 no change in presentation; being transferred to the geriatric unit to which patient is amenable Staff reports patient performed poorly on the Ana and that he needs assistance in all domains. Patient made statements that both of his sons were at the previous family meeting when only 1 was there. Discussed case with DANIELLA Irizarry who plans to file for civil commitment out of concern for patient's inability to be safe in the community ACLS / MOCA SOFIE: Needs assistance in all areas Plan: Admit, 3 day 15 minute checks Encourage milieu involvement Collateral Contact Diagnostics as needed Continue current regime Remeron 7.5 mg HS to begin to address depressive sx Folic Acid, MVI, Thiamine CIWA/Lorazepam prn for detox coverage MOCA today Reason for continued inpatient stay Substantial Risk for: inability to function Time Spent With Patient Time: Total time managing care of this patient today ____ minutes.
[2025-02-06 20:00] VITALS: BP 119/82; PULSE 77; RESP 18; TEMP 36.9; O2SAT 98
--- NOTE | 2025-02-07 08:45 | HO.PSYCHPN ---
Subjective Subjective Date of Service: 02/07/25 Reason For Visit: crisis eval Subjective Notes: Conditional Voluntary Healthcare Proxy: No Guardianship: No Medical Problems Affecting Mental Status: No Interim History: 69 yo with limited self help around ADLS and poor insight into issues of depression- reports he is doing ok - thinks medications are helping - but remaining fairly passive- Medication Compliance: Yes Side effects from medications: No Attending Groups: Intermittent Review of Systems Acute medical concerns: No Medical Review of Systems: unchanged Mental Status Exam Mental Status Exam Patient Appearance: Unkempt Patient Orientation: Person, Place and Situation Level of Consciousness: Awake Patient Behavior: Cooperative, Passive and Good Eye Contact Mood Description: Apathetic Affect Description: Flat Patient Cognition Impaired: Yes Ability to Follow Directions: Fair Speech Pattern: Clear Hallucinations: None Delusions: Not Present Thought Process: Intact Thought Content: positive for [place] and positive for Poverty of Content Judgement: Fair Diagnostics Vital Signs (24Hr): Vital Signs - 24 hr 02/06/25 20:00 Temperature 98.4 F Pulse Rate 77 Respiratory Rate 18 Blood Pressure 119/82 Pulse Oximetry 98 Oxygen Delivery Method Room Air BMI result Body Mass Index 24.2 Labs 01/27/25 09:16 01/30/25 07:56 Imaging Radiology Impressions: ITS Impressions Cervical Spine CT 01/27/25 09:20 IMPRESSION: Multilevel cervical spondylosis without acute fracture or trauma-related listhesis. Fleischner guidelines were followed. Electronically signed by: Twin Saavedra MD 01/27/2025 11:03 AM EDT RP Head CT 01/27/25 09:20 IMPRESSION: No acute fracture, bony calvarium. No acute intracranial hemorrhage. Electronically signed by: Twin Saavedra MD 01/27/2025 11:06 AM EDT RP Chest X-Ray 01/27/25 10:20 IMPRESSION: No acute disease. Mild degenerative disc disease in the midthoracic spine. Electronically signed by: Kris Ordonez MD 01/27/2025 10:35 AM EDT Medications Medications Current Medications Acetaminophen (Acetaminophen 325 Mg Tablet) 650 mg PO Q6H PRN PRN Reason: Headache/Pain, Scale 1-10 Last Admin: 02/06/25 22:57 Dose: 650 mg Al Hydroxide/Mg Hydroxide (Magnesium Hydrox/Alum Hydrox 30 Ml Oral.Susp) 30 ml PO Q6H PRN PRN Reason: Heartburn/Nausea Divalproex Sodium (Divalproex Sodium 500 Mg Tablet.) 500 mg PO DAILY [facility] Last Admin: 02/06/25 08:44 Dose: 500 mg Divalproex Sodium (Divalproex Sodium 500 Mg Tablet.) 1,000 mg PO BEDTIME [facility] Last Admin: 02/06/25 22:29 Dose: 1,000 mg Folic Acid (Folic Acid 1 Mg Tablet) 1 mg PO DAILY [facility] Last Admin: 02/06/25 08:46 Dose: Not Given Hydroxyzine HCl (Hydroxyzine Hcl 25 Mg Tablet) 25 mg PO Q6H PRN PRN Reason: mild anxiety Last Admin: 02/05/25 20:48 Dose: 25 mg Magnesium Hydroxide (Milk Of Magnesia 30 Ml Oral.Susp) 30 ml PO DAILY PRN PRN Reason: Constipation Last Admin: 02/03/25 09:49 Dose: 30 ml Mirtazapine (Mirtazapine 15 Mg Tablet) 15 mg PO BEDTIME [facility] Last Admin: 02/06/25 20:51 Dose: 15 mg Multivitamins/Vitamin C (Multivitamin Tablet) 1 tab PO DAILY [facility] Last Admin: 02/06/25 08:46 Dose: Not Given Nicotine (Nicotine 14 Mg Patch.Td24) 14 mg TRANSDERMA DAILY [facility] Last Admin: 02/06/25 08:46 Dose: Not Given Nicotine Polacrilex (Nicotine Polacrilex 2 Mg Gum) 4 mg BUCCAL Q2H PRN PRN Reason: Nicotine Cravings Olanzapine (Olanzapine 5 Mg Tablet) 5 mg PO TID PRN PRN Reason: agitation Last Admin: 02/06/25 16:10 Dose: 5 mg Thiamine HCl (Thiamine Hcl 100 Mg Tablet) 100 mg PO DAILY [facility] Last Admin: 02/06/25 08:46 Dose: Not Given Trazodone HCl (Trazodone Hcl 50 Mg Tablet) 50 mg PO BEDTIME MRX1 PRN PRN Reason: Insomnia Last Admin: 02/06/25 22:57 Dose: 50 mg Vitamin D (Cholecalciferol (Vitamin D3) 25 Mcg Tablet) 25 mcg PO DAILY [facility] Last Admin: 02/06/25 08:46 Dose: Not Given Allergies Allergies Allergy/AdvReac Type Severity Reaction Status Date / Time No Known Allergies Allergy Mild NONE Verified 01/27/25 09:01 Assessment & Plan Assessment & Plan (1) Depression: Status: Acute Code(s): F32.A - Depression, unspecified (2) Alcohol use disorder: Status: Acute Code(s): F10.90 - Alcohol use, unspecified, uncomplicated (3) Mild cognitive impairment: Status: Acute Code(s): G31.84 - Mild cognitive impairment of uncertain or unknown etiology Plan Hospital course: 01/31: Continue current management and treatment plan. 02/01: Increase Remeron to 15 mg. 02/02: Continue tx 02/03: B12, Folate, Ammonia 02/04 Patient denies psychiatric symptoms? .? Says that his family meeting was all right Patient has little else to say. 02/05 Patient says he is fine; to nursing he reported right foot pain but would not let anyone examine it; typewriter tester inquired and patient says that it is old and been there a long time and that it is not any worse.? Discussed transfer and patient to the geriatric floor for increased support; he said he was okay with that but wanted to make sure that his 3 day notice would remain intact which typewriter tester confirmed 02/06 no change in presentation; being transferred to the geriatric unit to which patient is amenable Staff reports patient performed poorly on the Ana and that he needs assistance in all domains. Patient made statements that both of his sons were at the previous family meeting when only 1 was there. Discussed case with DANIELLA Irizarry who plans to file for civil commitment out of concern for patient's inability to be safe in the community 02/07/25- CTP ACLS 10/12 MOCA SOFIE: Needs assistance in all areas Plan: Admit, 3 day 15 minute checks Encourage milieu involvement Collateral Contact Diagnostics as needed Continue current regime Remeron 7.5 mg HS to begin to address depressive sx Folic Acid, MVI, Thiamine CIWA/Lorazepam prn for detox coverage MOCA today Patient educated on: medication risk/benefits, substance abuse and therapeutic strategies Informed Consent: further education needed Reason for continued inpatient stay Substantial Risk for: inability to function and rapid decompensation Time Spent With Patient Time: Total time managing care of this patient today ____ minutes.
[2025-02-07 09:15] VITALS: BP 112/82; PULSE 72; RESP 18; TEMP 36; O2SAT 99
[2025-02-07 20:00] VITALS: BP 133/89; PULSE 70; RESP 16; TEMP 36.6; O2SAT 97
[2025-02-08 09:25] VITALS: BP 117/82; PULSE 84; RESP 14; TEMP 37.1; O2SAT 94
--- NOTE | 2025-02-08 12:43 | HO.PSYCHPN ---
Subjective Subjective Date of Service: 02/08/25 Reason For Visit: crisis eval Subjective Notes: Conditional Voluntary Healthcare Proxy: No Guardianship: No Medical Problems Affecting Mental Status: Yes (possibly) Interim History: 69 yo co high anxiety and tremor- last etoh 01/27- 11 days ago - bp and pulse generally wnl- denies cravings for alcohol, denies having this kind of anxiety before- Denies ah/vh- Slept ok, energy low- apt ok Medication Compliance: Yes Side effects from medications: No Attending Groups: Intermittent Review of Systems Acute medical concerns: No Medical Review of Systems: unchanged Mental Status Exam Mental Status Exam Patient Appearance: Unkempt Patient Orientation: Person, Place and Situation Level of Consciousness: Awake and Alert Patient Behavior: Cooperative and Good Eye Contact Mood Description: Anxious Affect Description: Apprehensive Patient Cognition Impaired: Yes Ability to Follow Directions: Fair Speech Pattern: Clear and Impoverished (of content ) Hallucinations: None Delusions: Not Present Thought Process: Intact and Goal Oriented Thought Content: positive for [place] Depressive Symptoms: Increased Anxiety and Muscle Tension Judgement: Fair Diagnostics Vital Signs (24Hr): Vital Signs - 24 hr 02/07/25 20:00 02/08/25 09:25 Temperature 97.9 F 98.8 F Pulse Rate 70 84 Respiratory Rate 16 14 Blood Pressure 133/89 117/82 Pulse Oximetry 97 94 Oxygen Delivery Method Room Air Room Air BMI result Body Mass Index 24.2 Labs 01/27/25 09:16 01/30/25 07:56 Imaging Radiology Impressions: ITS Impressions Cervical Spine CT 01/27/25 09:20 IMPRESSION: Multilevel cervical spondylosis without acute fracture or trauma-related listhesis. Fleischner guidelines were followed. Electronically signed by: Twin Saavedra MD 01/27/2025 11:03 AM EDT RP Head CT 01/27/25 09:20 IMPRESSION: No acute fracture, bony calvarium. No acute intracranial hemorrhage. Electronically signed by: Twin Saavedra MD 01/27/2025 11:06 AM EDT RP Chest X-Ray 01/27/25 10:20 IMPRESSION: No acute disease. Mild degenerative disc disease in the midthoracic spine. Electronically signed by: Kris Ordonez MD 01/27/2025 10:35 AM EDT RP Medications Medications Current Medications Acetaminophen (Acetaminophen 325 Mg Tablet) 650 mg PO Q6H PRN PRN Reason: Headache/Pain, Scale 1-10 Last Admin: 02/06/25 22:57 Dose: 650 mg Al Hydroxide/Mg Hydroxide (Magnesium Hydrox/Alum Hydrox 30 Ml Oral.Susp) 30 ml PO Q6H PRN PRN Reason: Heartburn/Nausea Divalproex Sodium (Divalproex Sodium 500 Mg Tablet.) 500 mg PO DAILY [facility] Last Admin: 02/08/25 09:29 Dose: 500 mg Divalproex Sodium (Divalproex Sodium 500 Mg Tablet.) 1,000 mg PO BEDTIME [facility] Last Admin: 02/07/25 20:33 Dose: 1,000 mg Folic Acid (Folic Acid 1 Mg Tablet) 1 mg PO DAILY [facility] Last Admin: 02/08/25 09:29 Dose: 1 mg Hydroxyzine HCl (Hydroxyzine Hcl 25 Mg Tablet) 25 mg PO Q6H PRN PRN Reason: mild anxiety Last Admin: 02/05/25 20:48 Dose: 25 mg Magnesium Hydroxide (Milk Of Magnesia 30 Ml Oral.Susp) 30 ml PO DAILY PRN PRN Reason: Constipation Last Admin: 02/03/25 09:49 Dose: 30 ml Mirtazapine (Mirtazapine 15 Mg Tablet) 15 mg PO BEDTIME [facility] Last Admin: 02/07/25 20:32 Dose: 15 mg Multivitamins/Vitamin C (Multivitamin Tablet) 1 tab PO DAILY [facility] Last Admin: 02/08/25 09:29 Dose: 1 tab Nicotine (Nicotine 14 Mg Patch.Td24) 14 mg TRANSDERMA DAILY [facility] Last Admin: 02/08/25 09:30 Dose: Not Given Nicotine Polacrilex (Nicotine Polacrilex 2 Mg Gum) 4 mg BUCCAL Q2H PRN PRN Reason: Nicotine Cravings Olanzapine (Olanzapine 5 Mg Tablet) 5 mg PO TID PRN PRN Reason: agitation Last Admin: 02/06/25 16:10 Dose: 5 mg Thiamine HCl (Thiamine Hcl 100 Mg Tablet) 100 mg PO DAILY [facility] Last Admin: 02/08/25 09:29 Dose: 100 mg Trazodone HCl (Trazodone Hcl 50 Mg Tablet) 50 mg PO BEDTIME MRX1 PRN PRN Reason: Insomnia Last Admin: 02/08/25 00:01 Dose: 50 mg Vitamin D (Cholecalciferol (Vitamin D3) 25 Mcg Tablet) 25 mcg PO DAILY [facility] Last Admin: 02/08/25 09:28 Dose: 25 mcg Allergies Allergies Allergy/AdvReac Type Severity Reaction Status Date / Time No Known Allergies Allergy Mild NONE Verified 01/27/25 09:01 Assessment & Plan Assessment & Plan (1) Depression: Status: Acute Code(s): F32.A - Depression, unspecified (2) Alcohol use disorder: Status: Acute Code(s): F10.90 - Alcohol use, unspecified, uncomplicated (3) Mild cognitive impairment: Status: Acute Code(s): G31.84 - Mild cognitive impairment of uncertain or unknown etiology (4) Anxiety: Status: Acute Code(s): F41.9 - Anxiety disorder, unspecified Assessment and Plan: co anxiety and tremor- will add propranlol tid prn Plan Hospital course: 01/31: Continue current management and treatment plan. 02/01: Increase Remeron to 15 mg. 02/02: Continue tx 02/03: B12, Folate, Ammonia 02/04 Patient denies psychiatric symptoms? .? Says that his family meeting was all right Patient has little else to say. 02/05 Patient says he is fine; to nursing he reported right foot pain but would not let anyone examine it; documentation writer inquired and patient says that it is old and been there a long time and that it is not any worse.? Discussed transfer and patient to the geriatric floor for increased support; he said he was okay with that but wanted to make sure that his 3 day notice would remain intact which documentation writer confirmed 02/06 no change in presentation; being transferred to the geriatric unit to which patient is amenable Staff reports patient performed poorly on the Ana and that he needs assistance in all domains. Patient made statements that both of his sons were at the previous family meeting when only 1 was there. Discussed case with DANIELLA Irizarry who plans to file for civil commitment out of concern for patient's inability to be safe in the community 02/07/25- CTP ACLS / MOCA SOFIE: Needs assistance in all areas Plan: Admit, 3 day 15 minute checks Encourage milieu involvement Collateral Contact Diagnostics as needed Continue current regime Remeron 7.5 mg HS to begin to address depressive sx Folic Acid, MVI, Thiamine CIWA/Lorazepam prn for detox coverage MOCA today Patient educated on: diagnosis and substance abuse Informed Consent: further education needed Reason for continued inpatient stay Substantial Risk for: inability to function, rapid decompensation and med/psych decompensation Time Spent With Patient Time: Total time managing care of this patient today ____ minutes.
[2025-02-08 14:29] VITALS: BP 143/94; PULSE 98
[2025-02-08 20:00] VITALS: BP 110/76; PULSE 83; RESP 16; TEMP 37; O2SAT 97
[2025-02-09 09:07] VITALS: BP 114/72; PULSE 86; RESP 18; TEMP 36.7; O2SAT 96
--- NOTE | 2025-02-09 14:16 | HO.PSYCHPN ---
Subjective Subjective Date of Service: 02/09/25 Reason For Visit: crisis eval Subjective Notes: Conditional Voluntary Interim History: Pt slept through the night. He reports increase in tremors when grabbing things since last Sunday. He reports mild tremors but reports he is now not able to hold his coffee. Noted bilat very pronounced action tremors. He reports he came here because he was depressed and had what he thought it was a seizure but it seems like he never lost consciousness. He reports he had been using alcohol more often, reports wine is not his drink of choice so does find that different or unusual. He does not think alcohol use is a problem. He declined medications to decrease alcohol use. He reports he has been treated for Bipolar Disorder, no prior hx of psychosis or delusions. He reports he is worried about his future. He reports he was struggling paying bills but his son helped him. He reports he does not feel comfortable here in the unit because he is not able to smoke cigarrettes, declines nicotine patch or gum but will continue to offer. Mental Status Exam Mental Status Exam Narrative: Appearance: wearing hospital gown, fair hygiene, in NAD Behavior: cooperative Psychomotor: notable bilat action tremors Speech: mostly clear, normal rate/rhythm/volume, spontaneous TP: mostly linear TC: hoping to go home soon Mood: okay Affect: congruent SI: denies HI: denies VH/AH: no overt signs Delusions: no overt delusional content Insight/judgment: poor x 2. Memory/cog: alert, oriented to place, month year and situation. MOCA scored 14/30 with impairments in visuospatial/executive function, naming, attention, language fluency, recall (1/5) Diagnostics Vital Signs (24Hr): Vital Signs - 24 hr 02/08/25 14:29 02/08/25 20:00 02/09/25 09:07 Temperature 98.6 F 98.1 F Pulse Rate 98 83 86 Respiratory Rate 16 18 Blood Pressure 143/94 H 110/76 114/72 Pulse Oximetry 97 96 Oxygen Delivery Method Room Air Room Air BMI result Body Mass Index 24.2 Labs 01/27/25 09:16 01/30/25 07:56 Imaging Radiology Impressions: ITS Impressions Cervical Spine CT 01/27/25 09:20 IMPRESSION: Multilevel cervical spondylosis without acute fracture or trauma-related listhesis. Fleischner guidelines were followed. Electronically signed by: Twin Saavedra MD 01/27/2025 11:03 AM EDT RP Head CT 01/27/25 09:20 IMPRESSION: No acute fracture, bony calvarium. No acute intracranial hemorrhage. Electronically signed by: Twin Saavedra MD 01/27/2025 11:06 AM EDT RP Chest X-Ray 01/27/25 10:20 IMPRESSION: No acute disease. Mild degenerative disc disease in the midthoracic spine. Electronically signed by: Kris Ordonez MD 01/27/2025 10:35 AM EDT RP Medications Medications Current Medications Acetaminophen (Acetaminophen 325 Mg Tablet) 650 mg PO Q6H PRN PRN Reason: Headache/Pain, Scale 1-10 Last Admin: 02/06/25 22:57 Dose: 650 mg Al Hydroxide/Mg Hydroxide (Magnesium Hydrox/Alum Hydrox 30 Ml Oral.Susp) 30 ml PO Q6H PRN PRN Reason: Heartburn/Nausea Divalproex Sodium (Divalproex Sodium 500 Mg Tablet.) 500 mg PO DAILY [facility] Last Admin: 02/09/25 09:08 Dose: 500 mg Divalproex Sodium (Divalproex Sodium 500 Mg Tablet.) 1,000 mg PO BEDTIME [facility] Last Admin: 02/08/25 20:11 Dose: 1,000 mg Folic Acid (Folic Acid 1 Mg Tablet) 1 mg PO DAILY [facility] Last Admin: 02/09/25 11:40 Dose: Not Given Hydroxyzine HCl (Hydroxyzine Hcl 25 Mg Tablet) 25 mg PO Q6H PRN PRN Reason: mild anxiety Last Admin: 02/08/25 20:11 Dose: 25 mg Magnesium Hydroxide (Milk Of Magnesia 30 Ml Oral.Susp) 30 ml PO DAILY PRN PRN Reason: Constipation Last Admin: 02/03/25 09:49 Dose: 30 ml Mirtazapine (Mirtazapine 15 Mg Tablet) 15 mg PO BEDTIME [facility] Last Admin: 02/08/25 20:12 Dose: 15 mg Multivitamins/Vitamin C (Multivitamin Tablet) 1 tab PO DAILY [facility] Last Admin: 02/09/25 11:40 Dose: Not Given Nicotine (Nicotine 14 Mg Patch.Td24) 14 mg TRANSDERMA DAILY [facility] Last Admin: 02/09/25 11:40 Dose: Not Given Nicotine Polacrilex (Nicotine Polacrilex 2 Mg Gum) 4 mg BUCCAL Q2H PRN PRN Reason: Nicotine Cravings Olanzapine (Olanzapine 5 Mg Tablet) 5 mg PO TID PRN PRN Reason: agitation Last Admin: 02/06/25 16:10 Dose: 5 mg Propranolol HCl (Propranolol Hcl 10 Mg Tablet) 10 mg PO TID [facility]; Protocol Last Admin: 02/09/25 11:40 Dose: Not Given Thiamine HCl (Thiamine Hcl 100 Mg Tablet) 100 mg PO DAILY [facility] Last Admin: 02/09/25 11:41 Dose: Not Given Trazodone HCl (Trazodone Hcl 50 Mg Tablet) 50 mg PO BEDTIME MRX1 PRN PRN Reason: Insomnia Last Admin: 02/08/25 20:12 Dose: 50 mg Vitamin D (Cholecalciferol (Vitamin D3) 25 Mcg Tablet) 25 mcg PO DAILY [facility] Last Admin: 02/09/25 11:40 Dose: Not Given Allergies Allergies Allergy/AdvReac Type Severity Reaction Status Date / Time No Known Allergies Allergy Mild NONE Verified 01/27/25 09:01 Assessment & Plan Assessment & Plan (1) Alcohol use disorder: Status: Acute Code(s): F10.90 - Alcohol use, unspecified, uncomplicated (2) Mild cognitive impairment: Status: Acute Code(s): G31.84 - Mild cognitive impairment of uncertain or unknown etiology (3) Bipolar disorder with depression: Status: Acute Code(s): F31.9 - Bipolar disorder, unspecified Plan Mr. De Luna is a 69 year-old male with hx of bipolar disorder, alcohol use disorder who was brought to [facility] ED due to suspected seizure. However, note that pt reports he never lost consciousness and was shaking on the floor. Pt had reported drinking glass of wive and 20 onz beer daily for several months. He denied SI/HI. No psychosis nor delusional content noted. Family reported concern in terms of his ability to care for himself and pay bills. Hospital course: 01/31: Continue current management and treatment plan. 02/01: Increase Remeron to 15 mg. 02/02: Continue tx 02/03: B12, Folate, Ammonia 02/04 Patient denies psychiatric symptoms? .? Says that his family meeting was all right Patient has little else to say. 02/05 Patient says he is fine; to nursing he reported right foot pain but would not let anyone examine it; mortgage or loan underwriter inquired and patient says that it is old and been there a long time and that it is not any worse.? Discussed transfer and patient to the geriatric floor for increased support; he said he was okay with that but wanted to make sure that his 3 day notice would remain intact which mortgage or loan underwriter confirmed 02/06 no change in presentation; being transferred to the geriatric unit to which patient is amenable Staff reports patient performed poorly on the Ana and that he needs assistance in all domains. Patient made statements that both of his sons were at the previous family meeting when only 1 was there. Discussed case with DANIELLA Irizarry who plans to file for civil commitment out of concern for patient's inability to be safe in the community 02/07/25- CTP ACLS 4.6 MOCA SOFIE: Needs assistance in all area 02/09 pt presents with increase action tremors affecting his ability to hold cups and other objects. He reports this is worse than before. I am meeting him for the first time and can't compare but tremors are bilat and very prominent. 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 The question of whether he should be placed at [facility] or return home with services need to be discussed with family and SW. Reason for continued inpatient stay Substantial Risk for: inability to function Time Spent With Patient Time: Total time managing care of this patient today ____ minutes.
[2025-02-09 15:20] VITALS: BP 120/88; PULSE 82
[2025-02-09 16:40] LABS: Ammonia 20 umol/L (13-55)
[2025-02-09 16:49] LABS: Alanine Aminotransferase 22 U/L (0-40); Albumin Level 4.2 g/dL (3.5-5.0); Alkaline Phosphatase 66 U/L (39-117); Anion Gap 13 (12-20); Aspartate Amino Transferase 25 U/L (5-37); Blood Urea Nitrogen 61 mg/dL (9-16); Calcium 8.6 mg/dL (8.4-10.2); Carbon Dioxide 27 mmol/L (22-29); Chloride 107 mmol/L (96-108); Creatinine Clr Calc Pharmacy 26.2; Estimated Glomerular Filt Rate 22; Potassium 4.7 mmol/L (3.3-5.1); Sodium 142 mmol/L (135-145); Total Protein 7.2 g/dL (6.5-8.0)
[2025-02-09 19:40] VITALS: BP 114/76; PULSE 63; RESP 16; TEMP 37.1; O2SAT 97
[2025-02-09 20:22] VITALS: BP 114/76; PULSE 63
[2025-02-10 08:00] VITALS: BP 118/77; PULSE 71; RESP 16; TEMP 36.4; O2SAT 96
[2025-02-10 14:52] VITALS: BP 130/101
--- NOTE | 2025-02-10 17:10 | P.PNPSI_ITS ---
Subjective Subjective Date of Service: 02/10/25 Reason For Visit: crisis eval Subjective Notes: Conditional Voluntary Interim History: Pt denies SI/HI. He also denies depression. Continues to present with bilat action tremors although also seem like action myoclonic movement- may be related to depakote. His renal function is trending up, although does seem close to her baseline. continue to monitor. Review of Systems Review of Systems See HPI. Yes all other systems are reviewed and are negative Mental Status Exam Mental Status Exam Narrative: Appearance: wearing hospital gown, fair hygiene, in NAD Behavior: cooperative Psychomotor: notable bilat action tremors Speech: mostly clear, normal rate/rhythm/volume, spontaneous TP: mostly linear TC: hoping to go home soon Mood: okay Affect: congruent SI: denies HI: denies VH/AH: no overt signs Delusions: no overt delusional content Insight/judgment: poor x 2. Memory/cog: alert, oriented to place, month year and situation. MOCA scored 14/30 with impairments in visuospatial/executive function, naming, attention, language fluency, recall (/) Patient Appearance: Unkempt Patient Orientation: Person, Place and Situation Level of Consciousness: Awake and Alert Patient Behavior: Cooperative and Good Eye Contact Mood Description: Anxious Affect Description: Apprehensive Patient Cognition Impaired: Yes Ability to Follow Directions: Fair Speech Pattern: Clear and Impoverished (of content ) Memory Description: Episodic Impaired Diagnostics Vital Signs (24Hr): Vital Signs - 24 hr 02/09/25 19:40 02/09/25 20:22 02/10/25 08:00 Temperature 98.8 F 97.6 F Pulse Rate 63 63 71 Respiratory Rate 16 16 Blood Pressure 114/76 114/76 118/77 Pulse Oximetry 97 96 Oxygen Delivery Method Room Air Room Air 02/10/25 14:52 Temperature Pulse Rate Respiratory Rate Blood Pressure 130/101 H Pulse Oximetry Oxygen Delivery Method BMI result Body Mass Index 24.2 Labs 01/27/25 09:16 02/12/25 07:27 Labs: Laboratory Results - last 48 hr 02/09/25 16:23 Sodium 142 Potassium 4.7 Chloride 107 Carbon Dioxide 27 Anion Gap 13 BUN 61 H Creatinine 2.87 H Estim Creat Clear Calc 26.2 Estimated GFR 22 Random Glucose 115 Calcium 8.6 D Total Bilirubin 0.2 AST 25 ALT 22 Alkaline Phosphatase 66 Ammonia 20 Total Protein 7.2 Albumin 4.2 Imaging Radiology Impressions: ITS Impressions Cervical Spine CT 01/27/25 09:20 IMPRESSION: Multilevel cervical spondylosis without acute fracture or trauma-related listhesis. Fleischner guidelines were followed. Electronically signed by: Twin Saavedra MD 01/27/2025 11:03 AM EDT RP Head CT 01/27/25 09:20 IMPRESSION: No acute fracture, bony calvarium. No acute intracranial hemorrhage. Electronically signed by: Twin Saavedra MD 01/27/2025 11:06 AM EDT RP Chest X-Ray 01/27/25 10:20 IMPRESSION: No acute disease. Mild degenerative disc disease in the midthoracic spine. Electronically signed by: Kris Ordonez MD 01/27/2025 10:35 AM EDT RP Medications Medications Current Medications Acetaminophen (Acetaminophen 325 Mg Tablet) 650 mg PO Q6H PRN PRN Reason: Headache/Pain, Scale 1-10 Last Admin: 02/06/25 22:57 Dose: 650 mg Al Hydroxide/Mg Hydroxide (Magnesium Hydrox/Alum Hydrox 30 Ml Oral.Susp) 30 ml PO Q6H PRN PRN Reason: Heartburn/Nausea Divalproex Sodium (Divalproex Sodium 500 Mg Tablet.) 500 mg PO DAILY [facility] Last Admin: 02/10/25 09:20 Dose: 500 mg Divalproex Sodium (Divalproex Sodium 500 Mg Tablet.) 1,000 mg PO BEDTIME [facility] On Hold: 02/09/25 15:06 Comment: increase tremors Last Admin: 02/08/25 20:11 Dose: 1,000 mg Folic Acid (Folic Acid 1 Mg Tablet) 1 mg PO DAILY [facility] Last Admin: 02/10/25 09:20 Dose: 1 mg Hydroxyzine HCl (Hydroxyzine Hcl 25 Mg Tablet) 25 mg PO Q6H PRN PRN Reason: mild anxiety Last Admin: 02/08/25 20:11 Dose: 25 mg Magnesium Hydroxide (Milk Of Magnesia 30 Ml Oral.Susp) 30 ml PO DAILY PRN PRN Reason: Constipation Last Admin: 02/03/25 09:49 Dose: 30 ml Mirtazapine (Mirtazapine 15 Mg Tablet) 15 mg PO BEDTIME [facility] Last Admin: 02/09/25 20:22 Dose: 15 mg Multivitamins/Vitamin C (Multivitamin Tablet) 1 tab PO DAILY [facility] Last Admin: 02/10/25 09:19 Dose: 1 tab Nicotine (Nicotine 14 Mg Patch.Td24) 14 mg TRANSDERMA DAILY [facility] Last Admin: 02/10/25 09:22 Dose: Not Given Nicotine Polacrilex (Nicotine Polacrilex 2 Mg Gum) 4 mg BUCCAL Q2H PRN PRN Reason: Nicotine Cravings Olanzapine (Olanzapine 5 Mg Tablet) 5 mg PO TID PRN PRN Reason: agitation Last Admin: 02/06/25 16:10 Dose: 5 mg Propranolol HCl (Propranolol Hcl 10 Mg Tablet) 10 mg PO TID [facility]; Protocol Last Admin: 02/10/25 14:52 Dose: 10 mg Thiamine HCl (Thiamine Hcl 100 Mg Tablet) 100 mg PO DAILY [facility] Last Admin: 02/10/25 09:20 Dose: 100 mg Trazodone HCl (Trazodone Hcl 50 Mg Tablet) 50 mg PO BEDTIME MRX1 PRN PRN Reason: Insomnia Last Admin: 02/10/25 02:43 Dose: 50 mg Vitamin D (Cholecalciferol (Vitamin D3) 25 Mcg Tablet) 25 mcg PO DAILY [facility] Last Admin: 02/10/25 09:20 Dose: 25 mcg Allergies Allergies Allergy/AdvReac Type Severity Reaction Status Date / Time No Known Allergies Allergy Mild NONE Verified 01/27/25 09:01 Assessment & Plan Assessment & Plan (1) Bipolar disorder with depression: Status: Acute Code(s): F31.9 - Bipolar disorder, unspecified (2) Alcohol use disorder: Status: Acute Code(s): F10.90 - Alcohol use, unspecified, uncomplicated (3) Mild cognitive impairment: Status: Acute Code(s): G31.84 - Mild cognitive impairment of uncertain or unknown etiology Plan Mr. De Luna is a 69 year-old male with hx of bipolar disorder, alcohol use disorder who was brought to [facility] ED due to suspected seizure. However, note that pt reports he never lost consciousness and was shaking on the floor. Pt had reported drinking glass of wive and 20 onz beer daily for several months. He denied SI/HI. No psychosis nor delusional content noted. Family reported concern in terms of his ability to care for himself and pay bills. Hospital course: 01/31: Continue current management and treatment plan. 02/01: Increase Remeron to 15 mg. 02/02: Continue tx 02/03: B12, Folate, Ammonia 02/04 Patient denies psychiatric symptoms? .? Says that his family meeting was all right Patient has little else to say. 02/05 Patient says he is fine; to nursing he reported right foot pain but would not let anyone examine it; law writer inquired and patient says that it is old and been there a long time and that it is not any worse.? Discussed transfer and patient to the geriatric floor for increased support; he said he was okay with that but wanted to make sure that his 3 day notice would remain intact which law writer confirmed 02/06 no change in presentation; being transferred to the geriatric unit to which patient is amenable Staff reports patient performed poorly on the Ana and that he needs assistance in all domains. Patient made statements that both of his sons were at the previous family meeting when only 1 was there. Discussed case with DANIELLA Irizarry who plans to file for civil commitment out of concern for patient's inability to be safe in the community 02/07/25- CTP ACLS 4.6 MOCA SOFIE: Needs assistance in all area 02/09 pt presents with increase action tremors affecting his ability to hold cups and other objects. He reports this is worse than before. I am meeting him for the first time and can't compare but tremors are bilat and very prominent. 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 The question of whether he should be placed at [facility] or return home with services need to be discussed with family and SW. 02/10 denies SI/HI. continues to have action tremor/myoclonus, had held night time dose. he may be benefit from medications like latuda for mood stabilization. maybe trial without depakote but will coordinate with OP psychiatrist Dr. Kerr. Reason for continued inpatient stay Substantial Risk for: inability to function Time Spent With Patient Time: Total time managing care of this patient today ____ minutes.
[2025-02-10 17:43] LABS: Alanine Aminotransferase 20 U/L (0-40); Albumin Level 4.3 g/dL (3.5-5.0); Alkaline Phosphatase 72 U/L (39-117); Anion Gap 12 (12-20); Aspartate Amino Transferase 25 U/L (5-37); Blood Urea Nitrogen 57 mg/dL (9-16); Calcium 8.8 mg/dL (8.4-10.2); Carbon Dioxide 26 mmol/L (22-29); Chloride 108 mmol/L (96-108); Creatinine Clr Calc Pharmacy 25.6; Estimated Glomerular Filt Rate 21; Potassium 4.7 mmol/L (3.3-5.1); Sodium 141 mmol/L (135-145); Total Protein 7.0 g/dL (6.5-8.0)
[2025-02-10 20:46] VITALS: BP 135/91; PULSE 72; RESP 16; TEMP 35.9; O2SAT 97
[2025-02-10 20:51] VITALS: BP 135/91; PULSE 72
[2025-02-11 08:00] VITALS: BP 102/64; PULSE 84; RESP 16; TEMP 36.5; O2SAT 99
[2025-02-11 09:05] VITALS: BP 102/64; PULSE 84
--- NOTE | 2025-02-11 13:53 | PM.CNNEP ---
History of Present Illness Reason for Consult Consult date: 02/11/25 Chief Complaint Chief complaint: crisis eval History of Present Illness Narrative: 69 y/o male with a medical history of HTN, seizures, CKD4. Presented to the ED on 01/27 with son for evaluation regarding pt-reported seizures at home, feeling confused since last seizure episode, does not typically remember his seizures; on depakote, misses from time to time but had been taking for most part. Also reported increasing depression, drinking 1 glass of wince and 1 20-ounce beer daily, denies illicit substance use. Reported 20-lb weight loss over last 6 weeks. Also reported increased water intake, poor appetite. Was admitted to inpatient psychiatry for failure to thrive, depression, seizure disorder. Nephrology consulted for JOSEPH on CKD4. 07/22/19 creatinine 2.13. 01/27/25 creatinine 2.59 01/30/25 creatinine 2.59 02/09/25 creatinine 2.87 02/10/25 creatinine 2.94 UA bland on 01/27/25 electrolytes within normal limits; no metabolic acidosis. Patient reports he is followed by tile mason Dr Herat at [facility] in [place], reports has an appt next week. Reports CKD is from lithium, started 5 years ago, thinks he has had some slow progression of renal disease since then. Denies regular use of NSAIDs. Reports 1-2 alcoholic drinks daily at home. Denies illicit substance use. Reports poor appetite, but is eating some food with each meal in hospital. Reports was drinking about a gallon of water daily at home, now about 2L daily. Denies urinary symptoms. Denies chest pain, dizziness, shortness of breath, abdominal pain, flank pain. Reports has some right finger pain and right foot pain from cutting them on the grass prior to hospitalization. Also tremor which has been worsening recently. Denies other new symptoms/concerns. Review of Systems Review of Systems See HPI. Yes all other systems are reviewed and are negative PMFSH Past Medical History Medical History (Updated 02/11/25 @ 14:07 by Noelle Muniz DNP, [employer]) Alcohol use disorder Social History Social History Household Members: None Household Members Other:: lives alone Housing: Other Housing Other:: Trailer Do you presently have visiting nurse or other home services: No Comment: Patient has had a seizure Patient Tobacco Use Status: Current everyday Tobacco user Tobacco use type: Cigarette Cigarette Packs Per Day: 1 Cigarettes Per Day: 20.0 Years Smoked: 50 Smoked in Last 30 Days: Yes e-Cigarette/Vaping Use: Never Used Patient Interested in Nicotine Replacement: Yes Patient Given Instructions on How to Stop Smoking: No Second Hand Smoke Exposure: No Use of substances other than those prescribed or required for medical reasons: Yes Substance Use Type: Marijuana Currently Displaying Signs/Symptoms of Drug Intoxication Withdrawal: No Have you been hit, kicked, punched, or otherwise hurt by someone within the past year? If so, by whom?: No Do you feel safe in your current relationship?: No Current Relationship Is there a partner from a previous relationship who is making you feel unsafe now?: No Are you made to feel afraid or neglected: No Advance Directives: No Advance Directives Information Provided: Yes Do you have thoughts of harming others: None Do you have a plan to hurt others: No Plan Recently lost weight without trying: Yes How much weight loss: 14-23 pounds Eating poorly because of decreased appetite: Yes Nutrition screen score: 5 Nutrition Risks: Poor intake 0-25% >4 days Poor oral hygiene: Yes (Dentures) service: No Sexual orientation: Straight/Heterosexual Meds Allergies Allergy/AdvReac Type Severity Reaction Status Date / Time No Known Allergies Allergy Mild NONE Verified 01/27/25 09:01 Active Medications: Current Medications Acetaminophen (Acetaminophen 325 Mg Tablet) 650 mg PO Q6H PRN PRN Reason: Headache/Pain, Scale 1-10 Last Admin: 02/06/25 22:57 Dose: 650 mg Al Hydroxide/Mg Hydroxide (Magnesium Hydrox/Alum Hydrox 30 Ml Oral.Susp) 30 ml PO Q6H PRN PRN Reason: Heartburn/Nausea Divalproex Sodium (Divalproex Sodium 500 Mg Tablet.) 500 mg PO DAILY [facility] Last Admin: 02/11/25 09:05 Dose: 500 mg Divalproex Sodium (Divalproex Sodium 500 Mg Tablet.) 1,000 mg PO BEDTIME [facility] On Hold: 02/09/25 15:06 Comment: increase tremors Last Admin: 02/08/25 20:11 Dose: 1,000 mg Folic Acid (Folic Acid 1 Mg Tablet) 1 mg PO DAILY [facility] Last Admin: 02/11/25 09:05 Dose: 1 mg Hydroxyzine HCl (Hydroxyzine Hcl 25 Mg Tablet) 25 mg PO Q6H PRN PRN Reason: mild anxiety Last Admin: 02/08/25 20:11 Dose: 25 mg Magnesium Hydroxide (Milk Of Magnesia 30 Ml Oral.Susp) 30 ml PO DAILY PRN PRN Reason: Constipation Last Admin: 02/03/25 09:49 Dose: 30 ml Mirtazapine (Mirtazapine 30 Mg Tablet) 30 mg PO BEDTIME [facility] Last Admin: 02/10/25 20:51 Dose: 30 mg Multivitamins/Vitamin C (Multivitamin Tablet) 1 tab PO DAILY [facility] Last Admin: 02/11/25 09:05 Dose: 1 tab Nicotine (Nicotine 14 Mg Patch.Td24) 14 mg TRANSDERMA DAILY [facility] Last Admin: 02/11/25 09:09 Dose: Not Given Nicotine Polacrilex (Nicotine Polacrilex 2 Mg Gum) 4 mg BUCCAL Q2H PRN PRN Reason: Nicotine Cravings Olanzapine (Olanzapine 5 Mg Tablet) 5 mg PO TID PRN PRN Reason: agitation Last Admin: 02/06/25 16:10 Dose: 5 mg Propranolol HCl (Propranolol Hcl 10 Mg Tablet) 10 mg PO TID [facility]; Protocol Last Admin: 02/11/25 09:05 Dose: 10 mg Thiamine HCl (Thiamine Hcl 100 Mg Tablet) 100 mg PO DAILY [facility] Last Admin: 02/11/25 09:05 Dose: 100 mg Trazodone HCl (Trazodone Hcl 50 Mg Tablet) 50 mg PO BEDTIME MRX1 PRN PRN Reason: Insomnia Last Admin: 02/10/25 23:41 Dose: 50 mg Vitamin D (Cholecalciferol (Vitamin D3) 25 Mcg Tablet) 25 mcg PO DAILY [facility] Last Admin: 02/11/25 09:05 Dose: 25 mcg Home Medications ?Medication ?Instructions ?Recorded ?Confirmed ?Last Taken ?Type cholecalciferol (vitamin D3) 25 25 mcg PO DAILY 01/28/25 01/28/25 3 Days Ago History mcg (1,000 unit) tablet (Vitamin ~01/25/25 D3) divalproex 500 mg tablet,delayed 1,000 mg PO BEDTIME 01/28/25 01/28/25 01/27/25 History release divalproex 500 mg tablet,delayed 500 mg PO DAILY 01/28/25 01/28/25 01/28/25 History release vitamin B complex 1 tab PO DAILY 01/28/25 01/28/25 3 Days Ago History ~01/25/25 Physical Exam Vital Signs: Last Vital Signs Temp 97.7 F 02/11/25 08:00 Pulse 84 02/11/25 09:05 Resp 16 02/11/25 08:00 BP 102/64 02/11/25 09:05 Pulse Ox 99 02/11/25 08:00 O2 Del Method Room Air 02/11/25 08:00 BMI result Body Mass Index 24.2 Const General: no acute distress, alert and awake Resp Effort & Inspection: normal respiratory effort and able to speak in complete sentences Auscultation: clear to auscultation bilaterally Cardio Rate: regular rate Rhythm: regular rhythm Heart sounds: S1 normal heart sound present and S2 normal heart sound present GI Palpation (GI): Soft to palpation and nontender General: Yes no CVA tenderness Back/Spine/Pelvis Back: no CVA tenderness Skin Rashes: no rashes Neuro Other: resting generalized tremor, mild. Extrem General: No edema Results Lab Results 01/27/25 09:16 02/10/25 16:32 Lab results: Chemistry 02/09/25 02/10/25 16:23 16:32 Sodium 142 141 Potassium 4.7 4.7 Carbon Dioxide 27 26 BUN 61 H 57 H Creatinine 2.87 H 2.94 H Calcium 8.6 D 8.8 Assessment and Plan (1) Acute kidney injury superimposed on CKD: Status: Acute Plan JOSEPH on CKD4 vs baseline renal disease unclear baseline creatinine, may be with his baseline range. will get US to rule out obstruction will check urine electrolytes, ensure patient is well hydrated will re-check UA to ensure no changes, check urine eosinophils- AIN on differential though less likely given previous bland UA Patient will follow up with his outpatient tile mason as planned once he is discharged. Avoid nephrotoxic medications- currently prescribed medications are ok. Discussed with Dr Yu. Procedures Date of Service Date of Service: 02/11/25
--- NOTE | 2025-02-11 14:11 | HO.PM.IMCN ---
History of Present Illness Data of Consult Service Date: 02/11/25 Primary Care Provider: Tomas Arce MD [facility] Reason for consult: Acute on chronic kidney disease 69 year old male with pmhx significant for HTN, seizures, and stage 4 CKD (not on dialysis) presents to the ED today with his son for evaluation. He reports seizure 1-2 days ago while home alone. Patient states he recalls the entire episode. Reports falling to the ground and began convulsing. This lasted anywhere from 1-5 minutes. Denies any preceding symptoms of headache, dizziness, chest pain, palpitations, shortness of breath. He was eventually able to get off of the ground himself and ambulate. He denies any head strike. Denies tongue bite. Denies bowel or bladder incontinence. He is not on anticoagulation. He reports feeling confused since this time. He admits he does not typically remember his seizures. He is currently on Depakote and reports compliance however admits to missing a few doses here and there. He reports taking his Depakote this morning. Reports increasing depression. He currently follows with a therapist approximately 2 times a year. Reports recently meeting with them however did not inform them of how he was feeling. Reports contacting his son today who brought him to the ED for further evaluation. Admits to smoking approximately 1 pack of cigarettes a day. Admits to drinking approximately 1 glass of wine and 1 large 20 oz beer daily over the last month. Denies any history of ETOH withdrawal or known withdrawal seizures. He last consumed alcohol last night. Denies any illicit substance use. Denies SI/HI. Admits to unintentional 20 lb weight loss over the last 4-6 weeks. Reports episode of vomiting a few day ago which has since resolved. Admits to increased water intake and decreased food intake. [facility] Medical History (Updated 02/11/25 @ 14:07 by Noelle Muniz DNP, [employer]ER[employer]) Alcohol use disorder Social History Household Members: None Household Members Other:: lives alone Housing: Other Housing Other:: Trailer Do you presently have visiting nurse or other home services: No Comment: Patient has had a seizure Patient Tobacco Use Status: Current everyday Tobacco user Tobacco use type: Cigarette Cigarette Packs Per Day: 1 Cigarettes Per Day: 20.0 Years Smoked: 50 Smoked in Last 30 Days: Yes e-Cigarette/Vaping Use: Never Used Patient Interested in Nicotine Replacement: Yes Patient Given Instructions on How to Stop Smoking: No Second Hand Smoke Exposure: No Use of substances other than those prescribed or required for medical reasons: Yes Substance Use Type: Marijuana Currently Displaying Signs/Symptoms of Drug Intoxication Withdrawal: No Have you been hit, kicked, punched, or otherwise hurt by someone within the past year? If so, by whom?: No Do you feel safe in your current relationship?: No Current Relationship Is there a partner from a previous relationship who is making you feel unsafe now?: No Are you made to feel afraid or neglected: No Advance Directives: No Advance Directives Information Provided: Yes Do you have thoughts of harming others: None Do you have a plan to hurt others: No Plan Recently lost weight without trying: Yes How much weight loss: 14-23 pounds Eating poorly because of decreased appetite: Yes Nutrition screen score: 5 Nutrition Risks: Poor intake 0-25% >4 days Poor oral hygiene: Yes (Dentures) service: No Sexual orientation: Straight/Heterosexual Meds Allergies Allergy/AdvReac Type Severity Reaction Status Date / Time No Known Allergies Allergy Mild NONE Verified 01/27/25 09:01 Active Medications: Current Medications Acetaminophen (Acetaminophen 325 Mg Tablet) 650 mg PO Q6H PRN PRN Reason: Headache/Pain, Scale 1-10 Last Admin: 02/06/25 22:57 Dose: 650 mg Al Hydroxide/Mg Hydroxide (Magnesium Hydrox/Alum Hydrox 30 Ml Oral.Susp) 30 ml PO Q6H PRN PRN Reason: Heartburn/Nausea Divalproex Sodium (Divalproex Sodium 500 Mg Tablet.) 500 mg PO DAILY [facility] Last Admin: 02/11/25 09:05 Dose: 500 mg Divalproex Sodium (Divalproex Sodium 500 Mg Tablet.) 1,000 mg PO BEDTIME [facility] On Hold: 02/09/25 15:06 Comment: increase tremors Last Admin: 02/08/25 20:11 Dose: 1,000 mg Folic Acid (Folic Acid 1 Mg Tablet) 1 mg PO DAILY [facility] Last Admin: 02/11/25 09:05 Dose: 1 mg Hydroxyzine HCl (Hydroxyzine Hcl 25 Mg Tablet) 25 mg PO Q6H PRN PRN Reason: mild anxiety Last Admin: 02/08/25 20:11 Dose: 25 mg Magnesium Hydroxide (Milk Of Magnesia 30 Ml Oral.Susp) 30 ml PO DAILY PRN PRN Reason: Constipation Last Admin: 02/03/25 09:49 Dose: 30 ml Mirtazapine (Mirtazapine 15 Mg Tablet) 15 mg PO BEDTIME [facility] Multivitamins/Vitamin C (Multivitamin Tablet) 1 tab PO DAILY [facility] Last Admin: 02/11/25 09:05 Dose: 1 tab Nicotine (Nicotine 14 Mg Patch.Td24) 14 mg TRANSDERMA DAILY [facility] Last Admin: 02/11/25 09:09 Dose: Not Given Nicotine Polacrilex (Nicotine Polacrilex 2 Mg Gum) 4 mg BUCCAL Q2H PRN PRN Reason: Nicotine Cravings Olanzapine (Olanzapine 5 Mg Tablet) 5 mg PO TID PRN PRN Reason: agitation Last Admin: 02/06/25 16:10 Dose: 5 mg Propranolol HCl (Propranolol Hcl 10 Mg Tablet) 10 mg PO TID [facility]; Protocol Last Admin: 02/11/25 09:05 Dose: 10 mg Thiamine HCl (Thiamine Hcl 100 Mg Tablet) 100 mg PO DAILY [facility] Last Admin: 02/11/25 09:05 Dose: 100 mg Trazodone HCl (Trazodone Hcl 50 Mg Tablet) 50 mg PO BEDTIME MRX1 PRN PRN Reason: Insomnia Last Admin: 02/10/25 23:41 Dose: 50 mg Vitamin D (Cholecalciferol (Vitamin D3) 25 Mcg Tablet) 25 mcg PO DAILY [facility] Last Admin: 02/11/25 09:05 Dose: 25 mcg Home Medications ?Medication ?Instructions ?Recorded ?Confirmed ?Last Taken ?Type cholecalciferol (vitamin D3) 25 25 mcg PO DAILY 01/28/25 01/28/25 3 Days Ago History mcg (1,000 unit) tablet (Vitamin ~01/25/25 D3) divalproex 500 mg tablet,delayed 1,000 mg PO BEDTIME 01/28/25 01/28/25 01/27/25 History release divalproex 500 mg tablet,delayed 500 mg PO DAILY 01/28/25 01/28/25 01/28/25 History release vitamin B complex 1 tab PO DAILY 01/28/25 01/28/25 3 Days Ago History ~01/25/25 Physical Exam Vital Signs and Narrative: Vital Signs: Last Vital Signs Temp 97.7 F 02/11/25 08:00 Pulse 84 02/11/25 09:05 Resp 16 02/11/25 08:00 BP 102/64 02/11/25 09:05 Pulse Ox 99 02/11/25 08:00 O2 Del Method Room Air 02/11/25 08:00 BMI result Body Mass Index 24.2 Results Labs 01/27/25 09:16 02/10/25 16:32 Labs: Laboratory Results - last 24 hr 02/10/25 16:32 Anion Gap 12 Estim Creat Clear Calc 25.6 Estimated GFR 21 Random Glucose 108 Calcium 8.8 Total Bilirubin 0.2 AST 25 ALT 20 Alkaline Phosphatase 72 Total Protein 7.0 Albumin 4.3
--- NOTE | 2025-02-11 14:36 | P.EN_ITS ---
Event Note Date of Service: 02/11/25 Event Note: Patient with elevated creatinine, the patient has stage 4 chronic kidney disease. Per [facility] record in 2023, creatinine elevated to 3.2. Unclear his baseline creatinine. Was seen by Nephrology, ultrasound is pending. Appreciate recommendations. Patient will need continued follow up with director of recruitment and admissions. Sees Dr. Ernandez Time Spent With Patient Time: Total time managing care of this patient today ____ minutes.
[2025-02-11 16:00] LABS: Appearance Urine Clear; Glucose Urine UA Negative (Negative); PH 6.5 (5.0-9.0); Specific Gravity - Urine <= 1.005 (1.005-1.025)
--- NOTE | 2025-02-11 16:00 | PC.NURSE ---
Patient refused Propranolol and BP check at 1500. Provider, Millie AMARO notified in person.
--- NOTE | 2025-02-11 21:27 | PM.PSYCN ---
History of Present Illness Date of Service: 02/11/2025 Chief Complaint: crisis eval HPI Narrative: Interim Hx: pt continues to denied SI/HI. He also denies symptoms of depression. he is somewhat dismissive and hoping to go soon. decreased in depakote has not made significant impact on tremors. We discussed considering latuda for bipolar depression/mood stabilization but he declined. He was seen by nephrology- increase in Cr seems to be close to his baseline but additional tests were ordered. Spoke with pt's son- no safety concerns in the home but notes that he is mostly at home and isolates. Son reports pt has a lot of family willing to help him. 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 ACL is NOT suggestive of 29/01 and given information from son is does not seem like he was unsafe at home. Son will continue helping with finances and medication management if VNA not covered by insurance. Pt is indifferent to additional supports, does not want additional people coming to his home. Son reports this has been his preference for years. Past Psychiatric History: IP:[facility] x1 OP: Caitlyn Valles MD SA: Denies, SI: Denies Denies perceptual alterations MOCA today is 14 [facility] Medical History (Updated 02/11/25 @ 14:07 by Noelle Muniz, DNP, PHARMACEUTICAL OPERATOR-BC) Alcohol use disorder Family History: Denies Social History: Born in [place], raised in [place] by both parents. One sister, two step brothers. Childhood was OK until he was older. Tearful when describing parents divorce when he was 16-he needed to move to a different town, lost friends and needed to go to a different school. As a result he quit school, got his GED. Reports a terrible marriage, 2 sons Trauma History: Parents divorce Diagnostics Vital Signs (24Hr): Vital Signs - 24 hr 02/11/25 08:00 02/11/25 09:05 Temperature 97.7 F Pulse Rate 84 84 Respiratory Rate 16 Blood Pressure 102/64 102/64 Pulse Oximetry 99 Oxygen Delivery Method Room Air BMI result Body Mass Index 24.2 Labs 01/27/25 09:16 02/12/25 07:27 Labs: Laboratory Results - last 48 hr 02/10/25 02/11/25 16:32 15:30 Sodium 141 Potassium 4.7 Chloride 108 Carbon Dioxide 26 Anion Gap 12 BUN 57 H Creatinine 2.94 H Estim Creat Clear Calc 25.6 Estimated GFR 21 Random Glucose 108 Calcium 8.8 Total Bilirubin 0.2 AST 25 ALT 20 Alkaline Phosphatase 72 Total Protein 7.0 Albumin 4.3 Urine Color Yellow Urine Appearance Clear Urine pH 6.5 Ur Specific [place] <= 1.005 Urine Protein Negative Urine Glucose (UA) Negative Urine Ketones Negative Urine Blood Negative Urine Nitrite Negative Ur Leukocyte Esterase Negative Ur Random Sodium 23.0 Ur Random Potassium 19.9 Ur Random Chloride 26.0 Imaging Radiology Impressions: ITS Impressions Cervical Spine CT 01/27/25 09:20 IMPRESSION: Multilevel cervical spondylosis without acute fracture or trauma-related listhesis. Fleischner guidelines were followed. Electronically signed by: Twin Saavedra MD 01/27/2025 11:03 AM EDT RP Head CT 01/27/25 09:20 IMPRESSION: No acute fracture, bony calvarium. No acute intracranial hemorrhage. Electronically signed by: Twin Saavedra MD 01/27/2025 11:06 AM EDT RP Chest X-Ray 01/27/25 10:20 IMPRESSION: No acute disease. Mild degenerative disc disease in the midthoracic spine. Electronically signed by: Kris Ordonez MD 01/27/2025 10:35 AM EDT RP Mental Status Exam Mental Status Exam Narrative: Appearance: wearing hospital gown, fair hygiene, in NAD Behavior: cooperative Psychomotor: notable bilat action tremors Speech: mostly clear, normal rate/rhythm/volume, spontaneous TP: mostly linear TC: hoping to go home soon Mood: okay Affect: congruent SI: denies HI: denies VH/AH: no overt signs Delusions: no overt delusional content Insight/judgment: poor x 2. Memory/cog: alert, oriented to place, month year and situation. MOCA scored 14/30 with impairments in visuospatial/executive function, naming, attention, language fluency, recall (1) Medications Medications Current Medications Acetaminophen (Acetaminophen 325 Mg Tablet) 650 mg PO Q6H PRN PRN Reason: Headache/Pain, Scale 1-10 Last Admin: 02/06/25 22:57 Dose: 650 mg Al Hydroxide/Mg Hydroxide (Magnesium Hydrox/Alum Hydrox 30 Ml Oral.Susp) 30 ml PO Q6H PRN PRN Reason: Heartburn/Nausea Divalproex Sodium (Divalproex Sodium 500 Mg Tablet.) 500 mg PO DAILY [facility] Last Admin: 02/11/25 09:05 Dose: 500 mg Divalproex Sodium (Divalproex Sodium 500 Mg Tablet.) 1,000 mg PO BEDTIME [facility] On Hold: 02/09/25 15:06 Comment: increase tremors Last Admin: 02/08/25 20:11 Dose: 1,000 mg Folic Acid (Folic Acid 1 Mg Tablet) 1 mg PO DAILY [facility] Last Admin: 02/11/25 09:05 Dose: 1 mg Hydroxyzine HCl (Hydroxyzine Hcl 25 Mg Tablet) 25 mg PO Q6H PRN PRN Reason: mild anxiety Last Admin: 02/08/25 20:11 Dose: 25 mg Magnesium Hydroxide (Milk Of Magnesia 30 Ml Oral.Susp) 30 ml PO DAILY PRN PRN Reason: Constipation Last Admin: 02/03/25 09:49 Dose: 30 ml Mirtazapine (Mirtazapine 15 Mg Tablet) 15 mg PO BEDTIME [facility] Multivitamins/Vitamin C (Multivitamin Tablet) 1 tab PO DAILY [facility] Last Admin: 02/11/25 09:05 Dose: 1 tab Nicotine (Nicotine 14 Mg Patch.Td24) 14 mg TRANSDERMA DAILY [facility] Last Admin: 02/11/25 09:09 Dose: Not Given Nicotine Polacrilex (Nicotine Polacrilex 2 Mg Gum) 4 mg BUCCAL Q2H PRN PRN Reason: Nicotine Cravings Olanzapine (Olanzapine 5 Mg Tablet) 5 mg PO TID PRN PRN Reason: agitation Last Admin: 02/06/25 16:10 Dose: 5 mg Propranolol HCl (Propranolol Hcl 10 Mg Tablet) 10 mg PO TID [facility]; Protocol Last Admin: 02/11/25 15:59 Dose: Not Given Thiamine HCl (Thiamine Hcl 100 Mg Tablet) 100 mg PO DAILY [facility] Last Admin: 02/11/25 09:05 Dose: 100 mg Trazodone HCl (Trazodone Hcl 50 Mg Tablet) 50 mg PO BEDTIME MRX1 PRN PRN Reason: Insomnia Last Admin: 02/10/25 23:41 Dose: 50 mg Vitamin D (Cholecalciferol (Vitamin D3) 25 Mcg Tablet) 25 mcg PO DAILY [facility] Last Admin: 02/11/25 09:05 Dose: 25 mcg Allergies Allergies Allergy/AdvReac Type Severity Reaction Status Date / Time No Known Allergies Allergy Mild NONE Verified 01/27/25 09:01 Assessment & Plan Assessment & Plan (1) Bipolar disorder with depression: Status: Acute Code(s): F31.9 - Bipolar disorder, unspecified (2) Alcohol use disorder: Status: Acute Code(s): F10.90 - Alcohol use, unspecified, uncomplicated (3) Mild cognitive impairment: Status: Acute Code(s): G31.84 - Mild cognitive impairment of uncertain or unknown etiology Plan 02/11/2025- Spoke with pt's son- no safety concerns in the home but notes that he is mostly at home and isolates. Son reports pt has a lot of family willing to help him. 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 ACL is NOT suggestive of /7 and given information from son is does not seem like he was unsafe at home. Son will continue helping with finances and medication management if VNA not covered by insurance. Pt is indifferent to additional supports, does not want additional people coming to his home. Son reports this has been his preference for years. Total time managing care of this patient today __30__ minutes. Patient educated on: diagnosis and medication risk/benefits Informed Consent: understands
[2025-02-11 21:56] VITALS: BP 119/85; PULSE 62; RESP 16; TEMP 36.8; O2SAT 97
[2025-02-11 21:57] VITALS: BP 119/85; PULSE 62
[2025-02-12 07:58] LABS: Alanine Aminotransferase 22 U/L (0-40); Albumin Level 4.1 g/dL (3.5-5.0); Alkaline Phosphatase 58 U/L (39-117); Anion Gap 10 (12-20); Aspartate Amino Transferase 25 U/L (5-37); Blood Urea Nitrogen 53 mg/dL (9-16); Calcium 9.1 mg/dL (8.4-10.2); Carbon Dioxide 27 mmol/L (22-29); Chloride 111 mmol/L (96-108); Creatinine Clr Calc Pharmacy 26.7; Estimated Glomerular Filt Rate 22; Potassium 5.2 mmol/L (3.3-5.1); Sodium 143 mmol/L (135-145); Total Protein 6.8 g/dL (6.5-8.0)
[2025-02-12 08:26] VITALS: BP 109/77; PULSE 73; RESP 18; TEMP 36.9; O2SAT 98
[2025-02-12 08:35] VITALS: BP 109/77; PULSE 73
[2025-02-12 11:55] LABS: EOS Counted 0 CELLS; EOS QC POS YES; EOS Stain Quality OK YES; WBC, Counted 0 CELLS
[2025-02-12 14:54] VITALS: BP 118/81; PULSE 89
[2025-02-12 15:21] VITALS: BMI 24.3
[2025-02-12 20:33] VITALS: BP 147/97; PULSE 59; RESP 15; TEMP 36; O2SAT 99
[2025-02-12 20:35] VITALS: BP 147/97; PULSE 59
--- NOTE | 2025-02-12 20:59 | P.PNPSI_ITS ---
Subjective Subjective Date of Service: 02/12/25 Reason For Visit: crisis eval Subjective Notes: Conditional Voluntary Interim History: Pt denies SI/HI. He continues to denies depression or SI/HI. He reports he is bored here. He wants to go home soon. He has been mostly in his room, visible for meals. Social with select peers. His renal function is trending up, although does seem close to her baseline. continue to monitor. Medication Compliance: Intermittent Review of Systems Review of Systems See HPI. Yes all other systems are reviewed and are negative Mental Status Exam Mental Status Exam Narrative: Appearance: wearing hospital gown, fair hygiene, in NAD Behavior: cooperative Psychomotor: notable bilat action tremors Speech: mostly clear, normal rate/rhythm/volume, spontaneous TP: mostly linear TC: hoping to go home soon Mood: okay Affect: congruent SI: denies HI: denies VH/AH: no overt signs Delusions: no overt delusional content Insight/judgment: poor x 2. Memory/cog: alert, oriented to place, month year and situation. MOCA scored 14/30 with impairments in visuospatial/executive function, naming, attention, language fluency, recall (07/13) Diagnostics Vital Signs (24Hr): Vital Signs - 24 hr 02/11/25 21:56 02/11/25 21:57 02/12/25 08:26 Temperature 98.3 F 98.4 F Pulse Rate 62 62 73 Respiratory Rate 16 18 Blood Pressure 119/85 119/85 109/77 Pulse Oximetry 97 98 Oxygen Delivery Method Room Air Room Air 02/12/25 08:35 02/12/25 14:54 02/12/25 20:33 Temperature 96.8 F Pulse Rate 73 89 59 Respiratory Rate 15 Blood Pressure 109/77 118/81 147/97 H Pulse Oximetry 99 Oxygen Delivery Method Room Air 02/12/25 20:35 Temperature Pulse Rate 59 Respiratory Rate Blood Pressure 147/97 H Pulse Oximetry Oxygen Delivery Method BMI result Body Mass Index 24.3 Labs 01/27/25 09:16 02/12/25 07:27 Labs: Laboratory Results - last 48 hr 02/11/25 02/12/25 15:30 07:27 Sodium 143 Potassium 5.2 H Chloride 111 H Carbon Dioxide 27 Anion Gap 10 L BUN 53 H Creatinine 2.82 H Estim Creat Clear Calc 26.7 Estimated GFR 22 Random Glucose 87 Calcium 9.1 Total Bilirubin 0.3 AST 25 ALT 22 Alkaline Phosphatase 58 Total Protein 6.8 Albumin 4.1 Urine Color Yellow Urine Appearance Clear Urine pH 6.5 Ur Specific [place] <= 1.005 Urine Protein Negative Urine Glucose (UA) Negative Urine Ketones Negative Urine Blood Negative Urine Nitrite Negative Ur Leukocyte Esterase Negative Urine Eosinophils % 0.0 Ur Random Sodium 23.0 Ur Random Potassium 19.9 Ur Random Chloride 26.0 Imaging Radiology Impressions: ITS Impressions Cervical Spine CT 01/27/25 09:20 IMPRESSION: Multilevel cervical spondylosis without acute fracture or trauma-related listhesis. Fleischner guidelines were followed. Electronically signed by: Twin Saavedra MD 01/27/2025 11:03 AM EDT RP Head CT 01/27/25 09:20 IMPRESSION: No acute fracture, bony calvarium. No acute intracranial hemorrhage. Electronically signed by: Twin Saavedra MD 01/27/2025 11:06 AM EDT RP Chest X-Ray 01/27/25 10:20 IMPRESSION: No acute disease. Mild degenerative disc disease in the midthoracic spine. Electronically signed by: Kris Ordonez MD 01/27/2025 10:35 AM EDT RP Renal Ultrasound 02/11/25 15:32 IMPRESSION: Increased renal cortical echotexture, consistent with chronic medical renal disease. Multiple bilateral renal cysts as described. Electronically signed by: Brando Tejada MD 02/12/2025 07:03 AM EDT RP Medications Medications Current Medications Acetaminophen (Acetaminophen 325 Mg Tablet) 650 mg PO Q6H PRN PRN Reason: Headache/Pain, Scale 1-10 Last Admin: 02/06/25 22:57 Dose: 650 mg Al Hydroxide/Mg Hydroxide (Magnesium Hydrox/Alum Hydrox 30 Ml Oral.Susp) 30 ml PO Q6H PRN PRN Reason: Heartburn/Nausea Divalproex Sodium (Divalproex Sodium 500 Mg Tablet.) 500 mg PO DAILY [facility] Last Admin: 02/12/25 09:58 Dose: 500 mg Divalproex Sodium (Divalproex Sodium 500 Mg Tablet.) 1,000 mg PO BEDTIME [facility] Last Admin: 02/12/25 20:35 Dose: 1,000 mg Folic Acid (Folic Acid 1 Mg Tablet) 1 mg PO DAILY [facility] Last Admin: 02/12/25 08:35 Dose: 1 mg Hydroxyzine HCl (Hydroxyzine Hcl 25 Mg Tablet) 25 mg PO Q6H PRN PRN Reason: mild anxiety Last Admin: 02/08/25 20:11 Dose: 25 mg Magnesium Hydroxide (Milk Of Magnesia 30 Ml Oral.Susp) 30 ml PO DAILY PRN PRN Reason: Constipation Last Admin: 02/03/25 09:49 Dose: 30 ml Mirtazapine (Mirtazapine 15 Mg Tablet) 15 mg PO BEDTIME [facility] Last Admin: 02/12/25 20:35 Dose: 15 mg Multivitamins/Vitamin C (Multivitamin Tablet) 1 tab PO DAILY [facility] Last Admin: 02/12/25 08:35 Dose: 1 tab Nicotine (Nicotine 14 Mg Patch.Td24) 14 mg TRANSDERMA DAILY [facility] Last Admin: 02/12/25 09:57 Dose: Not Given Nicotine Polacrilex (Nicotine Polacrilex 2 Mg Gum) 4 mg BUCCAL Q2H PRN PRN Reason: Nicotine Cravings Olanzapine (Olanzapine 5 Mg Tablet) 5 mg PO TID PRN PRN Reason: agitation Last Admin: 02/06/25 16:10 Dose: 5 mg Propranolol HCl (Propranolol Hcl 10 Mg Tablet) 10 mg PO TID [facility]; Protocol Last Admin: 02/12/25 20:35 Dose: 10 mg Thiamine HCl (Thiamine Hcl 100 Mg Tablet) 100 mg PO DAILY [facility] Last Admin: 02/12/25 08:35 Dose: 100 mg Trazodone HCl (Trazodone Hcl 50 Mg Tablet) 50 mg PO BEDTIME MRX1 PRN PRN Reason: Insomnia Last Admin: 02/10/25 23:41 Dose: 50 mg Vitamin D (Cholecalciferol (Vitamin D3) 25 Mcg Tablet) 25 mcg PO DAILY [facility] Last Admin: 02/12/25 08:35 Dose: 25 mcg Allergies Allergies Allergy/AdvReac Type Severity Reaction Status Date / Time No Known Allergies Allergy Mild NONE Verified 01/27/25 09:01 Assessment & Plan Assessment & Plan (1) Bipolar disorder with depression: Status: Acute Code(s): F31.9 - Bipolar disorder, unspecified (2) Alcohol use disorder: Status: Acute Code(s): F10.90 - Alcohol use, unspecified, uncomplicated (3) Mild cognitive impairment: Status: Acute Code(s): G31.84 - Mild cognitive impairment of uncertain or unknown etiology Plan Mr. De Luna is a 69 year-old male with hx of bipolar disorder, alcohol use disorder who was brought to [facility] due to suspected seizure. However, note that pt reports he never lost consciousness and was shaking on the floor. Pt had reported drinking glass of wive and 20 onz beer daily for several months. He denied SI/HI. No psychosis nor delusional content noted. Family reported concern in terms of his ability to care for himself and pay bills. Hospital course: 01/31: Continue current management and treatment plan. 02/01: Increase Remeron to 15 mg. 02/02: Continue tx 02/03: B12, Folate, Ammonia 02/04 Patient denies psychiatric symptoms? .? Says that his family meeting was all right Patient has little else to say. 02/05 Patient says he is fine; to nursing he reported right foot pain but would not let anyone examine it; automatic typewriter inspector inquired and patient says that it is old and been there a long time and that it is not any worse.? Discussed transfer and patient to the geriatric floor for increased support; he said he was okay with that but wanted to make sure that his 3 day notice would remain intact which automatic typewriter inspector confirmed 02/06 no change in presentation; being transferred to the geriatric unit to which patient is amenable Staff reports patient performed poorly on the Ana and that he needs assistance in all domains. Patient made statements that both of his sons were at the previous family meeting when only 1 was there. Discussed case with DANIELLA Irizarry who plans to file for civil commitment out of concern for patient's inability to be safe in the community 02/07/25- CTP ACLS 4.6 MOCA SOIFE: Needs assistance in all area 02/09 pt presents with increase action tremors affecting his ability to hold cups and other objects. He reports this is worse than before. I am meeting him for the first time and can't compare but tremors are bilat and very prominent. 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 The question of whether he should be placed at NURSING HOME or return home with services need to be discussed with family and SW. 02/10 denies SI/HI. continues to have action tremor/myoclonus, had held night time dose. he may be benefit from medications like latuda for mood stabilization. maybe trial without depakote but will coordinate with OP psychiatrist Dr. Kerr. 02/11 restart depakote. 02/12 continue tx. Reason for continued inpatient stay Substantial Risk for: inability to function Time Spent With Patient Time: Total time managing care of this patient today ____ minutes.
[2025-02-13 08:58] VITALS: BP 117/85; PULSE 84; RESP 16; TEMP 36.1; O2SAT 95
--- NOTE | 2025-02-13 11:29 | PM.PSYDC ---
DS: Providers Provider Date of Service: 02/13/25 Date of admission: 01/29/25 16:38 Date of discharge: 02/13/25 Primary care physician: Tomas Arce MD Consults: 02/11/25 13:18 Consult to Hospitalist Routine Comment: [place]ing [place] [facility] [place] [facility] Reason For Exam: JOSEPH 02/11/25 13:20 Consult to Nephrology Routine Consulting Provider: [facility] Reason for consultation: JOSEPH on chronic CKD stage 4 Has provider been notified: Yes DS: Diagnosis Discharge Diagnosis (1) Bipolar disorder with depression: Status: Acute (2) Alcohol use disorder: Status: Acute (3) Mild cognitive impairment: Status: Acute DS: Medications Discharge Medications Home Medications: Home Medications ?Medication ?Instructions ?Recorded ?Confirmed cholecalciferol (vitamin D3) 25 25 mcg PO DAILY 01/28/25 01/28/25 mcg (1,000 unit) tablet (Vitamin D3) divalproex 500 mg tablet,delayed 1,000 mg PO BEDTIME 01/28/25 01/28/25 release divalproex 500 mg tablet,delayed 500 mg PO DAILY 01/28/25 01/28/25 release vitamin B complex 1 tab PO DAILY 01/28/25 01/28/25 Mental Status Exam Mental Status Exam Narrative: Appearance: wearing hospital gown, fair hygiene, in NAD Behavior: cooperative Psychomotor: notable bilat action tremors Speech: mostly clear, normal rate/rhythm/volume, spontaneous TP: mostly linear TC: hoping to go home soon Mood: okay Affect: congruent SI: denies HI: denies VH/AH: no overt signs Delusions: no overt delusional content Insight/judgment: poor x 2. Memory/cog: alert, oriented to place, month year and situation. MOCA scored 14/30 with impairments in visuospatial/executive function, naming, attention, language fluency, recall (07/13) Data Data Completed and Pending Completed studies during hospitalization [Text1]: 02/09/25 02/10/25 02/11/25 16:23 16:32 15:30 Sodium 142 141 Potassium 4.7 4.7 Chloride 107 108 Carbon Dioxide 27 26 Anion Gap 13 12 BUN 61 H 57 H Creatinine 2.87 H 2.94 H Estim Creat Clear Calc 26.2 25.6 Estimated GFR 22 21 Random Glucose 115 108 Calcium 8.6 D 8.8 Total Bilirubin 0.2 0.2 AST 25 25 ALT 22 20 Alkaline Phosphatase 66 72 Ammonia 20 Total Protein 7.2 7.0 Albumin 4.2 4.3 Urine Color Yellow Urine Appearance Clear Urine pH 6.5 Ur Specific Leming <= 1.005 Urine Protein Negative Urine Glucose (UA) Negative Urine Ketones Negative Urine Blood Negative Urine Nitrite Negative Ur Leukocyte Esterase Negative Urine Eosinophils % 0.0 Ur Random Sodium 23.0 Ur Random Potassium 19.9 Ur Random Chloride 26.0 02/12/25 07:27 Sodium 143 Potassium 5.2 H Chloride 111 H Carbon Dioxide 27 Anion Gap 10 L BUN 53 H Creatinine 2.82 H Estim Creat Clear Calc 26.7 Estimated GFR 22 Random Glucose 87 Calcium 9.1 Total Bilirubin 0.3 AST 25 ALT 22 Alkaline Phosphatase 58 Ammonia Total Protein 6.8 Albumin 4.1 Urine Color Urine Appearance Urine pH Ur Specific Leming Urine Protein Urine Glucose (UA) Urine Ketones Urine Blood Urine Nitrite Ur Leukocyte Esterase Urine Eosinophils % Ur Random Sodium Ur Random Potassium Ur Random Chloride Imaging Diagnostic Imaging Impressions Cervical Spine CT 01/27/25 09:20 IMPRESSION: Multilevel cervical spondylosis without acute fracture or trauma-related listhesis. Fleischner guidelines were followed. Electronically signed by: Twin Saavedra MD 01/27/2025 11:03 AM EDT RP Head CT 01/27/25 09:20 IMPRESSION: No acute fracture, bony calvarium. No acute intracranial hemorrhage. Electronically signed by: Twin Saavedra MD 01/27/2025 11:06 AM EDT RP Chest X-Ray 01/27/25 10:20 IMPRESSION: No acute disease. Mild degenerative disc disease in the midthoracic spine. Electronically signed by: Kris Ordonez MD 01/27/2025 10:35 AM EDT RP Renal Ultrasound 02/11/25 15:32 IMPRESSION: Increased renal cortical echotexture, consistent with chronic medical renal disease. Multiple bilateral renal cysts as described. Electronically signed by: Brando eTjada MD 02/12/2025 07:03 AM EDT RP DS: Summary Hospital Course Hospital Course: Subjective Notes: Gue[place]a Warning and Conditional Voluntary Healthcare Proxy: No Guardianship: No Medical Problems Affecting Mental Status: No Narrative: 69 yo male, self presenting [place] [facility] [place]. Pt reports an increase in depressive sx, weight loss, and seizures along with poor sleep. Pt reports not taking medications regularly. He reports he needs help getting through this phase in his life. Describes feeling confusion and being out of place. States that [employer]UC[employer] he took a hit of cannabis and was drinking and had a seizure. Over the last 6 weeks he has been using 1 24oz beer and 1 bottle of wine daily. Feels he has no purpose in life. Purpose was lost when he retired 10 years ago from [employer] Past Psychiatric History: [place] [place] OP: Caitlyn Valles MD SA: Denies, SI: Denies Denies perceptual alterations MOCA today is 14 Medical Evaluation Reviewed: Yes HOSPITAL COURSE On the unit, pt was admitted on a CV. He reported feeling depressed but denied suicidal ideation throughout his hospital stay. He also denied alcohol being an issue and declined MAT and referrals for substance use disorder. He was continued on depakote, which he had been prescribed by his OP psychiatrist, Dr. Caitlyn Kerr. He was started on remeron for depression. We had discussed adding latuda for bipolar depression but patient declined stating that he does not like to take new medications. He denied symptoms of depression through most of the hospital stay. He presented with slightly irritable edge. There were no signs of psychosis or delusions. In terms of memory/cognitive, MOCA and ACL were completed. MOCA scored 14/30 with impairments in visuospatial/executive function, naming, attention, language fluency, recall (1/5). ACL score 4.6 showing moderate cognitive impairments. Pattern of cognitive impairment seems more consistent with vascular. Discussed finding with his son. Recommendation is that Ankit gets assistance with managing bills, medications and coordination of care. No other safety concerns at this time to consider alternative placement, which patient at this time is complently against it. He does have bilat action tremors. He was started on propanolol but patient was at times confused as to what this medication was for and would decline taking it. He also had increase in baseline creatinine (baseline is 2.00). He was seen by nephrology who recommends that patient follows up with his telephonic case manager, no acute JOSEPH. Status at Discharge Cognitive/behavioral status at discharge: Pt with brighter, non labile affect, mildly irritable although glad that he is going home. No SI/HI. No psychosis or delusions. Sleeping and eating well. No behavioral concerns. Functional status at discharge: independent ambulation Overall status at discharge: patient is progressing back to baseline Time Spent with Patient Time attestation: Total time managing care of this patient today __45__ minutes. Time spent: Greater than 30 minutes Discharge Plan Discharge Anticipated Discharge Date/Time: 02/13/25 11:31 Patient Disposition: Home, Self-Care Discharge Diagnosis: Bipolar Disorder Alcohol Use Disorder Referrals: Tomas Arce MD [Primary Care Provider, Internal Medicine] - 02/25/25 2:30 pm Referral Note: Your appointment will be with Hannah Hernandes due to scheduling conflicts in the office. You appointment will be 03/02 at 11:00AM. If you need to cancel or reschedule the appointment please call the number listed. Caitlyn Kerr MD [Physician, Psychiatry] - 02/18/25 4:20 pm Referral Note: You will see on Feb 18 at :20pm. This appointment will be in person at her office. If you need to cancel or reschedule the appointment please call the number listed. Discharge Medications: New multivitamin [Daily-Patricio] Tablet 1 tab PO DAILY Qty: 30 0RF propranolol 10 mg Tablet 10 mg PO TID Qty: 90 0RF Protocol: Hold for SBP/HR < HOLD for SBP < : 90 HOLD for HR < : 60 folic acid 1 mg Tablet 1 mg PO DAILY Qty: 30 0RF mirtazapine 15 mg Tablet 15 mg PO BEDTIME Qty: 30 0RF cholecalciferol (vitamin D3) 25 mcg (1,000 unit) Tablet 25 mcg PO DAILY Qty: 30 0RF thiamine mononitrate (vit B1) 100 mg Tablet 100 mg PO DAILY Qty: 30 0RF divalproex [Depakote ER] 500 mg tablet extended release 24 hr 1,500 mg PO BEDTIME Qty: 90 0RF Discontinued divalproex 500 mg tablet,delayed release (DR/EC) 500 mg PO DAILY divalproex 500 mg tablet,delayed release (DR/EC) 1,000 mg PO BEDTIME vitamin B complex Tablet 1 tab PO DAILY cholecalciferol (vitamin D3) [Vitamin D3] 25 mcg (1,000 unit) Tablet 25 mcg PO DAILY Discharge Orders: Discharge Order (Routine); Ordered 02/13/25 Ordered By: Millie Moon Diet: Regular diet Activity on Discharge: As tolerated Stand Alone Forms: Patient Portal Discharge page, Community Support Print Language: Greenlandic Care Plan Goals: 1. Maintain mood 2. No SI/HI. 3. No VH/AH 4. No delusions Health Concerns: Follow up with PCP for routine care Plan of Treatment: 1. Take medications as prescribed 2. Go to nearest ED or call 911 in event of emergency Assessment: Pt with constricted, non labile. No SI/HI. No overt psychosis or delusional content. Sleeping and eating well. Discharge Date/Time: 02/13/25 15:03
== END 2025-02-13 15:03 | disposition home or self-care (01) | DRG 885 ==
LOC: HO.ED 01-28 15:41 → HO.PM5 01-29 17:59 → HO.PGERI 02-06 13:38
PROVIDERS: Nurse Practitioner Family; Physician Assistant Medical; Social Worker; Admitting Provider Psychiatry & Neurology Psychiatry; Emergency Provider Emergency Medicine; PCP Internal Medicine; Visit Provider Clinical Nurse Specialist Psychiatric/Mental Health, Adult
DX: F31.9 Bipolar disorder, unspecified (principal); N18.4 Chronic kidney disease, stage 4 (severe); F17.210 Nicotine dependence, cigarettes, uncomplicated; F10.90 Alcohol use, unspecified, uncomplicated; G25.3 Myoclonus; T42.6X5A Adverse effect of other antiepileptic and sedative-hypnotic drugs, initial encounter; Z71.6 Tobacco abuse counseling; T42.6X6A Underdosing of other antiepileptic and sedative-hypnotic drugs, initial encounter; I12.9 Hypertensive chronic kidney disease with stage 1 through stage 4 chronic kidney disease, or unspecified chronic kidney disease; G31.84 Mild cognitive impairment of uncertain or unknown etiology; Z20.822 Contact with and (suspected) exposure to COVID-19; Z79.899 Other long term (current) drug therapy
CPT/HCPCS: 36415; 70450; 71046; 72125; 76775; 80053; 80061; 80164; 80307; 81003; 82140; 82436; 82550; 82607; 82746; 83036; 84133; 84300; 84443; 84484; 85025; 85999; 87637; 93005; 99285; S9485

== ENCOUNTER → 2025-01-27 09:04 | Outpatient (BNV) | payer MEDICARE, SELFPAY | PROVIDERS: Emergency Provider Emergency Medicine; PCP Internal Medicine; Visit Provider Internal Medicine Cardiovascular Disease | DX: I45.10 Unspecified right bundle-branch block (principal); I44.7 Left bundle-branch block, unspecified | CPT/HCPCS: 93010 ==

== ENCOUNTER → 2025-01-27 10:13 | Outpatient (BNV) | payer MEDICARE, SELFPAY | PROVIDERS: Emergency Provider Emergency Medicine; PCP Internal Medicine; Visit Provider Radiology Diagnostic Radiology | DX: R56.9 Unspecified convulsions (principal); R41.0 Disorientation, unspecified | CPT/HCPCS: 70450; 72125 ==

== ENCOUNTER 2025-01-29 16:38 | Outpatient (BNV) | payer MEDICARE, SELFPAY | END 2025-02-11 14:14 | PROVIDERS: Admitting Provider Psychiatry & Neurology Psychiatry; Emergency Provider Emergency Medicine; PCP Internal Medicine; Visit Provider Radiology Diagnostic Radiology | DX: N28.1 Cyst of kidney, acquired (principal) | CPT/HCPCS: 76775 ==

== ENCOUNTER → 2025-01-29 16:38 | Outpatient (BNV) | payer MEDICARE, SELFPAY | PROVIDERS: Admitting Provider Psychiatry & Neurology Psychiatry; Emergency Provider Emergency Medicine; PCP Internal Medicine; Visit Provider Clinical Nurse Specialist Psychiatric/Mental Health, Adult | DX: F32.2 Major depressive disorder, single episode, severe without psychotic features (principal); F10.90 Alcohol use, unspecified, uncomplicated; G31.84 Mild cognitive impairment of uncertain or unknown etiology | CPT/HCPCS: 90792; 99231; 99232 ==

== ENCOUNTER → 2025-01-29 16:38 | Outpatient (BNV) | payer MEDICARE, SELFPAY | PROVIDERS: Admitting Provider Psychiatry & Neurology Psychiatry; Emergency Provider Emergency Medicine; PCP Internal Medicine; Visit Provider Nurse Practitioner Family | DX: N17.9 Acute kidney failure, unspecified (principal); N18.9 Chronic kidney disease, unspecified | CPT/HCPCS: 99222 ==